=== PATIENT | female | born 1955 | race Caucasian/White ===

== ENCOUNTER → 2016-06-18 | Outpatient (CLI) | payer MEDICAID, BC ==
[2016-06-18 07:42] LABS: Basophils % (A) 1 %; CHCM 35.1; Eosinophils # (A) 0.1 k/uL (0-0.7); Eosinophils % (A) 1 %; HCT 42.8 % (34.0-46.0); HDW 2.74; HGB 14.7 gm/dL (11.4-16.0); Luc # (Auto) 0.25; Luc % (Auto) 4; Lymphocytes # (A) 2.2 k/uL (1.0-4.8); Lymphocytes % (A) 38 %; MCH 31.3 pg (25.0-35.0); MCHC 34.3 g/dL (31.0-37.0); MCV 91.4 fL (80.0-100.0); Mean Platelet Volume 9.3; Monocytes # (A) 0.5 k/uL (0-1.0); Monocytes % (A) 9 %; Neutrophils # (A) 2.8 k/uL (1.3-7.7); Neutrophils % (A) 48 %; RBC 4.68 m/uL (3.80-5.40); RDW 12.9 % (11.5-15.5); WBC 5.8 k/uL (3.8-10.6); WBC (Perox) 5.72
[2016-06-18 07:48] LABS: Calcium 9.8 mg/dL (8.4-10.2); Potassium 3.4 mmol/L (3.5-5.1); Total Bilirubin 1.3 mg/dL (0.2-1.3); Total Protein 7.6 g/dL (6.3-8.2)
== END | disposition home or self-care (01) ==
LOC: LABWHC1 07:01
PROVIDERS: ATTEND Internal Medicine Geriatric Medicine
DX: C64.2 Malignant neoplasm of left kidney, except renal pelvis (principal); E78.5 Hyperlipidemia, unspecified
CPT/HCPCS: 36415; 80053; 80061; 85025

== ENCOUNTER → 2016-07-26 | Outpatient (CLI) | payer MEDICAID, BC ==
--- NOTE | 2016-07-26 08:57 | XR ---
EXAMINATION TYPE: XR chest 2V DATE OF EXAM: 07/26/2016 8:43 AM COMPARISON: Prior chest x-ray 15 March 2016 HISTORY: Renal staging, renal cell carcinoma TECHNIQUE: Frontal and lateral views of the chest are obtained. FINDINGS: There is no focal air space opacity, pleural effusion, or pneumothorax seen. The cardiac silhouette size is within normal limits. The osseous structures are intact. IMPRESSION: No acute cardiopulmonary process.
--- NOTE | 2016-07-26 15:33 | CT ---
EXAMINATION TYPE: CT abdomen wo con DATE OF EXAM: 07/26/2016 8:43 AM COMPARISON: 07/03/2015 INDICATION: Follow up to Lt Radical nephrectomy, hypertension DLP: 152.7 mGycm, Automated exposure control for dose reduction was used. CONTRAST: 0 mL of Omnipaque 300. Study performed with Oral Contrast TECHNIQUE: Axial images were obtained from above the diaphragm to the pubic rami in the axial plane a t 5 mm thick sections. Reconstructed images are reviewed on the computer in the coronal plane. FINDINGS: Limited CT sections are obtained the lung bases. The lung bases are clear. CT ABDOMEN: Liver: Normal Spleen: Normal Pancreas: Normal Adrenal glands: The adrenal glands are normal. Gallbladder: Normal Kidneys: Left kidney is absent. No recurrent masses within the left renal bed are evident. Right kidney: No masses are evident. No hydronephrosis is present. No cysts are present. No renal stones are identified. Adenopathy: No suspicious adenopathy within the renal artery level is evident. No suspicious retrocav al adenopathy is evident. Aorta: Normal Inferior vena cava: Normal. No suspicious lytic lesions are evident. Some lower lumbar spine facet hypertrophy is present. Fecal debris is within the colon. Small bowel loops distended with oral contrast are unremarkable. IMPRESSIONS: 1. No suspicious changes for recurrent renal cancer
== END ==
LOC: RADCTMAIN 08:28
PROVIDERS: ATTEND Urology
DX: C64.9 Malignant neoplasm of unspecified kidney, except renal pelvis (principal)
CPT/HCPCS: 71020; 74150

== ENCOUNTER → 2016-09-04 | Outpatient (CLI) | payer MEDICAID, BC ==
[2016-09-04 14:40] LABS: CH 31.8; CHCM 33.5; HCT 39.3 % (34.0-46.0); MCH 31.6 pg (25.0-35.0); MCHC 33.2 g/dL (31.0-37.0); MCV 95.3 fL (80.0-100.0); Mean Platelet Volume 9.4; RBC 4.12 m/uL (3.80-5.40); RDW 13.2 % (11.5-15.5); WBC 6.2 k/uL (3.8-10.6)
[2016-09-04 14:50] LABS: Calcium 9.4 mg/dL (8.4-10.2); Phosphorous 3.9 mg/dL (2.5-4.5); Potassium 4.4 mmol/L (3.5-5.1); Total Bilirubin 0.9 mg/dL (0.2-1.3); Total Protein 6.5 g/dL (6.3-8.2)
[2016-09-04 15:04] LABS: Appearance,Urine Clear (Clear); Bilirubin,Urine Negative (Negative); Glucose,Urine (UA) Negative (Negative); Ketones,Urine Trace (Negative); Leukocyte Esterase,Urine Negative (Negative); Nitrite,Urine Negative (Negative); Protein,Urine Negative (Negative); Specific Gravity,Urine 1.014 (1.001-1.035); UA Billing (MACRO vs. MICRO) CHEM; Urobilinogen,Urine <2.0 mg/dL (<2.0)
== END | disposition home or self-care (01) ==
LOC: LABWHC1 13:48
PROVIDERS: ATTEND Internal Medicine Nephrology
DX: N39.0 Urinary tract infection, site not specified (principal); D64.9 Anemia, unspecified; E83.39 Other disorders of phosphorus metabolism
CPT/HCPCS: 36415; 80053; 81003; 84100; 85027

== ENCOUNTER → 2016-09-16 | Outpatient (CLI) | payer MEDICAID, BC ==
[2016-09-16 17:09] LABS: Basophils % (A) 0 %; CH 32.4; CHCM 35.9; Eosinophils # (A) 0.2 k/uL (0-0.7); Eosinophils % (A) 3 %; HCT 38.4 % (34.0-46.0); HDW 2.81; HGB 13.6 gm/dL (11.4-16.0); Luc # (Auto) 0.28; Luc % (Auto) 4; Lymphocytes # (A) 2.7 k/uL (1.0-4.8); Lymphocytes % (A) 42 %; MCH 32.3 pg (25.0-35.0); MCHC 35.5 g/dL (31.0-37.0); MCV 90.9 fL (80.0-100.0); Mean Platelet Volume 9.1; Monocytes # (A) 0.5 k/uL (0-1.0); Monocytes % (A) 8 %; Neutrophils # (A) 2.8 k/uL (1.3-7.7); Neutrophils % (A) 43 %; RBC 4.23 m/uL (3.80-5.40); RDW 12.6 % (11.5-15.5); WBC 6.5 k/uL (3.8-10.6); WBC (Perox) 6.95
[2016-09-16 17:12] LABS: Appearance,Urine Clear (Clear); Bilirubin,Urine Negative (Negative); Glucose,Urine (UA) Negative (Negative); Ketones,Urine Negative (Negative); Leukocyte Esterase,Urine Negative (Negative); Nitrite,Urine Negative (Negative); PH, Urine 6.5 (5.0-8.0); Protein,Urine Negative (Negative); Specific Gravity,Urine 1.019 (1.001-1.035); UA Billing (MACRO vs. MICRO) CHEM; Urobilinogen,Urine <2.0 mg/dL (<2.0)
[2016-09-16 17:27] LABS: Calcium 9.9 mg/dL (8.4-10.2); Magnesium 2.2 mg/dL (1.6-2.3); Phosphorous 4.1 mg/dL (2.5-4.5); Potassium 3.5 mmol/L (3.5-5.1); Uric Acid 6.8 mg/dL (3.7-7.4)
[2016-09-16 17:35] LABS: % Iron Saturation 20.4 % (20-50)
[2016-09-16 17:39] LABS: Creatinine,Urine Random 124.4 mg/dL
== END ==
LOC: LABWHC1 16:34
PROVIDERS: ATTEND Internal Medicine Nephrology
DX: N18.3 Chronic kidney disease, stage 3 (moderate) (principal); D64.9 Anemia, unspecified; E55.9 Vitamin D deficiency, unspecified; E21.3 Hyperparathyroidism, unspecified; M10.9 Gout, unspecified; N39.0 Urinary tract infection, site not specified; R80.9 Proteinuria, unspecified
CPT/HCPCS: 36415; 80048; 81003; 82306; 82570; 82728; 83540; 83550; 83735; 83970; 84100; 84156; 84443; 84550; 85025

== ENCOUNTER → 2016-10-11 | Outpatient (CLI) | payer MEDICAID, BC ==
[2016-10-11 07:56] LABS: Appearance,Urine Clear (Clear); Bilirubin,Urine Negative (Negative); Glucose,Urine (UA) Negative (Negative); Ketones,Urine Negative (Negative); Leukocyte Esterase,Urine Trace (Negative); Nitrite,Urine Negative (Negative); Particle Count 2300; Protein,Urine Negative (Negative); Specific Gravity,Urine 1.016 (1.001-1.035); Squamous Epithelial Cell,Urine 1 /hpf (0-4); UA Billing (MACRO vs. MICRO) MICRO; Urobilinogen,Urine <2.0 mg/dL (<2.0); WBC,Urine 1 /hpf (0-5)
[2016-10-11 08:14] LABS: Calcium 9.4 mg/dL (8.4-10.2); Magnesium 2.1 mg/dL (1.6-2.3); Potassium 3.7 mmol/L (3.5-5.1); Total Bilirubin 1.1 mg/dL (0.2-1.3); Total Protein 7.1 g/dL (6.3-8.2)
== END | disposition home or self-care (01) ==
LOC: LABWHC1 07:37
PROVIDERS: ATTEND Internal Medicine Nephrology
DX: E78.5 Hyperlipidemia, unspecified (principal); N39.0 Urinary tract infection, site not specified; N18.3 Chronic kidney disease, stage 3 (moderate)
CPT/HCPCS: 36415; 80053; 80061; 81001; 82550; 83735

== ENCOUNTER → 2017-01-08 | Outpatient (CLI) | payer MEDICAID, BC ==
[2017-01-08 08:03] LABS: Appearance,Urine Clear (Clear); Bilirubin,Urine Negative (Negative); Glucose,Urine (UA) Negative (Negative); Ketones,Urine Negative (Negative); Leukocyte Esterase,Urine Trace (Negative); Nitrite,Urine Negative (Negative); Particle Count 1145; Protein,Urine Trace (Negative); RBC,Urine 1 /hpf (0-5); Specific Gravity,Urine 1.018 (1.001-1.035); Squamous Epithelial Cell,Urine <1 /hpf (0-4); UA Billing (MACRO vs. MICRO) MICRO; Urobilinogen,Urine <2.0 mg/dL (<2.0); WBC,Urine 1 /hpf (0-5)
[2017-01-08 08:08] LABS: Calcium 9.4 mg/dL (8.4-10.2); Magnesium 2.1 mg/dL (1.6-2.3); Phosphorus 3.7 mg/dL (2.5-4.5); Potassium 4.2 mmol/L (3.5-5.1); Uric Acid 6.8 mg/dL (3.7-7.4)
[2017-01-08 08:39] LABS: Basophils % (A) 1 %; CH 32.4; Eosinophils # (A) 0.1 k/uL (0-0.7); Eosinophils % (A) 2 %; HCT 40.7 % (34.0-46.0); HDW 2.43; HGB 13.2 gm/dL (11.4-16.0); Luc # (Auto) 0.09; Luc % (Auto) 2; Lymphocytes # (A) 1.8 k/uL (1.0-4.8); Lymphocytes % (A) 37 %; MCH 31.1 pg (25.0-35.0); MCHC 32.5 g/dL (31.0-37.0); MCV 95.6 fL (80.0-100.0); Mean Platelet Volume 9.6; Monocytes # (A) 0.4 k/uL (0-1.0); Monocytes % (A) 8 %; Neutrophils # (A) 2.5 k/uL (1.3-7.7); Neutrophils % (A) 51 %; RBC 4.25 m/uL (3.80-5.40); RDW 13.6 % (11.5-15.5); WBC (Perox) 4.76
[2017-01-08 11:27] LABS: Iron Saturation 24.41 (12.00-45.00)
== END | disposition home or self-care (01) ==
LOC: LABWHC1 07:18
PROVIDERS: ATTEND Internal Medicine Nephrology
DX: N18.3 Chronic kidney disease, stage 3 (moderate) (principal); D64.9 Anemia, unspecified; E55.9 Vitamin D deficiency, unspecified; E21.3 Hyperparathyroidism, unspecified; M10.9 Gout, unspecified; N39.0 Urinary tract infection, site not specified
CPT/HCPCS: 36415; 80048; 81001; 82306; 82728; 83540; 83550; 83735; 83970; 84100; 84550; 85025

== ENCOUNTER → 2017-02-11 | Outpatient (CLI) | payer MEDICAID, BC ==
--- NOTE | 2017-02-12 09:57 | XR ---
EXAMINATION TYPE: XR chest 2V DATE OF EXAM: 02/11/2017 COMPARISON: 07/26/2016 HISTORY: Shortness of breath TECHNIQUE: Frontal and lateral views of the chest are obtained. FINDINGS: Scattered senescent parenchymal changes noted. Hyperinflation compatible with COPD. No evidence for infiltrate. No evidence for atelectasis. Heart size is stable. Mediastinal structures are stable and grossly unremarkable. No evidence for hilar prominence. Degenerative changes dorsal spine. IMPRESSION: 1. No evidence for acute pulmonary disease.
== END | disposition home or self-care (01) ==
LOC: RADXRMAIN 16:13
PROVIDERS: ATTEND Urology
DX: D49.519 Neoplasm of unspecified behavior of unspecified kidney (principal)
CPT/HCPCS: 71020

== ENCOUNTER 2017-05-09 08:29 | Emergency (ER) | payer MEDICAID, BC ==
[2017-05-09] MEDS ORDERED: ACETAMINOPHEN TAB 325 MG TAB PO STA (09:04)
--- NOTE | 2017-05-09 09:16 | ED ---
General Adult HPI - General Chief complaint: Fever Stated complaint: FLU SYMPTOMS Time Seen by Provider: 05/09/17 08:49 Source: patient, RN notes reviewed Mode of arrival: ambulatory - History of Present Illness Initial comments: Patient is a 63-year-old female who presents emergency room today with a chief complaint cough congestion, body aches chills and a fever over the last 4 days. Patient does admit that symptoms are 4 days ago she thought she would start feeling better but is not. She states that she believes she has the flu. She denies any nausea, vomiting, diarrhea. Admits to bodyaches to take Tylenol prior to arrival only 2 tabs 325 mg Tylenol. Patient states she cannot take ibuprofen. Patient denies any other complaints or symptoms. Patient denies any recent shortness of breath, chest pain, back pain, abdominal pain, nausea or vomiting, numbness or tingling, dysuria or hematuria, constipation or diarrhea, headaches or visual changes, or any other complaints. - Related Data Home Medications Medication Instructions Recorded Confirmed Aspirin 81 mg PO DIRECTED 03/09/14 05/09/17 Hydrochlorothiazide [Hydrodiuril] 12.5 mg PO DIRECTED 03/09/14 05/09/17 Atorvastatin [Lipitor] 10 mg PO DIRECTED 05/09/17 05/09/17 Carvedilol [Coreg] 6.25 mg PO BID 05/09/17 05/09/17 Cholecalciferol [Vitamin D3] 1,000 unit PO DAILY 05/09/17 05/09/17 Multivitamins, Thera [Multivitamin 1 tab PO DAILY 05/09/17 05/09/17 (formulary)] Previous Rx's Medication Instructions Recorded Oseltamivir [Tamiflu] 75 mg PO Q12HR 5 Days cap 05/09/17 Allergies Allergy/AdvReac Type Severity Reaction Status Date / Time No Known Allergies Allergy Verified 05/09/17 09:21 Review of Systems ROS Statement: Those systems with pertinent positive or pertinent negative responses have been documented in the HPI. ROS Other: All systems not noted in ROS Statement are negative. Past Medical History Past Medical History: Hypertension History of Any Multi-Drug Resistant Organisms: None Reported Additional Past Surgical History / Comment(s): Nephrectomy Past Psychological History: No Psychological Hx Reported Smoking Status: Never smoker Past Alcohol Use History: Occasional Past Drug Use History: None Reported General Exam - General Exam Comments Initial Comments: General: The patient is awake and alert, in no distress, and does not appear acutely ill. Eye: Pupils are equal, round and reactive to light, extra-ocular movements are intact. No nystagmus. There is normal conjunctiva bilaterally. No signs of icterus. Ears, nose, mouth and throat: There are moist mucous membranes and no oral lesions. Neck: The neck is supple, there is no tenderness or JVD. Cardiovascular: There is a regular rate and rhythm. No murmur, rub or gallop is appreciated. Respiratory: Lungs are clear to auscultation, respirations are non-labored, breath sounds are equal. No wheezes, stridor, rales, or rhonchi. Musculoskeletal: Normal ROM, no tenderness. Strength 5/5. Sensation intact. Pulses equal bilaterally 2+. Neurological: A&O x 3. CN II-XII intact, There are no obvious motor or sensory deficits. Coordination appears grossly intact. Speech is normal. Skin: Skin is warm and dry and no rashes or lesions are noted. Psychiatric: Cooperative, appropriate mood & affect, normal judgment. Course Vital Signs 05/09/17 08:40 Temperature 101.8 F H Pulse Rate 112 H Respiratory 22 Rate Blood Pressure 147/79 O2 Sat by Pulse 98 Oximetry Medical Decision Making - Medical Decision Making Patient's symptoms are consistent with influenza here the emergency room. Patient will be started on Tamiflu as she states that she believes that will help her symptoms. Patient was not swab for influenza as there is a shortage of the swab kits. Patient's chest x-rays negative. Will be discharged home. Advised to continue Tylenol return here to the emergency symptoms increase or worsen. Disposition Clinical Impression: Influenza Disposition: HOME SELF-CARE Condition: Good Instructions: Influenza (ED) Additional Instructions: Please use medication as discussed. Please follow-up with family doctor in the next 2 days of symptoms have not improved. Please return to emergency room if the symptoms increase or worsen or for any other concerns. Prescriptions: Oseltamivir [Tamiflu] 75 mg PO Q12HR 5 Days cap Referrals: Boni Calderon MD [Primary Care Provider] - 1-2 days Time of Disposition: 10:09
--- NOTE | 2017-05-09 09:29 | XR ---
EXAMINATION TYPE: XR chest 2V DATE OF EXAM: 05/09/2017 COMPARISON: Prior chest x-ray 02/11/2017 HISTORY: Cough and congestion TECHNIQUE: Frontal and lateral views of the chest are obtained. FINDINGS: There is no focal air space opacity, pleural effusion, or pneumothorax seen. The cardiac silhouette size is within normal limits. The osseous structures are intact. There is bronchial wall thickening. IMPRESSION: Findings compatible with bronchitis or reactive airways disease.
[2017-05-09 10:23] VITALS: BP 137/75; PULSE 78; RESP 18; TEMP 101.7
== END 2017-05-09 10:22 | disposition home or self-care (01) ==
LOC: EC 08:29
DX: J11.1 Influenza due to unidentified influenza virus with other respiratory manifestations (principal); I10 Essential (primary) hypertension; Z79.82 Long term (current) use of aspirin; Z79.899 Other long term (current) drug therapy
CPT/HCPCS: 71046; 99283

== ENCOUNTER → 2017-05-22 | Outpatient (CLI) | payer MEDICAID, BC ==
--- NOTE | 2017-05-26 09:57 | MM ---
Reason for exam: screening (asymptomatic). Last mammogram was performed 1 year and 2 months ago. History: Patient is postmenopausal and has history of other cancer at age 61. Benign cyst aspiration of the left breast, November 07, 1997. Excisional biopsy of the left breast. Took estrogen for 3 years 1 month. Physical Findings: A clinical breast exam by your physician is recommended on an annual basis and results should be correlated with mammographic findings. MG 3D Screening Mammo W/Cad Bilateral CC and MLO view(s) were taken. Prior study comparison: April 03, 2016, bilateral MG 3d screening mammo w/cad. February 20, 2015, bilateral MG 3d screening mammo w/cad. Finding: There is a typically benign equal density (isodense), obscured oval mass in the anterior position of the right breast on CC view, likely summation. New finding since April 03, 2016 and February 20, 2015. ASSESSMENT: Probably benign, BI-RAD 3 RECOMMENDATION: Follow-up diagnostic mammogram of the right breast in 6 months.
== END ==
LOC: RADMAMWWP 07:08
PROVIDERS: ATTEND Internal Medicine Geriatric Medicine
DX: Z12.31 Encounter for screening mammogram for malignant neoplasm of breast (principal)
CPT/HCPCS: 77063; 77067

== ENCOUNTER → 2017-06-30 | Outpatient (CLI) | payer MEDICAID, BC ==
[2017-06-30 07:53] LABS: Basophils % (A) 0 %; Eosinophils # (A) 0.1 k/uL (0-0.7); Eosinophils % (A) 2 %; HCT 39.9 % (34.0-46.0); HGB 13.2 gm/dL (11.4-16.0); Lymphocytes % (A) 39 %; MCHC 33.1 g/dL (31.0-37.0); MCV 90.5 fL (80.0-100.0); Mean Platelet Volume 8.8; Monocytes # (A) 0.4 k/uL (0-1.0); Monocytes % (A) 9 %; Neutrophils # (A) 2.4 k/uL (1.3-7.7); Neutrophils % (A) 48 %; Platelet Count 146 k/uL (150-450); RBC 4.41 m/uL (3.80-5.40); RDW 13.3 % (11.5-15.5)
[2017-06-30 08:13] LABS: Albumin 4.2 g/dL (3.5-5.0); Calcium 9.8 mg/dL (8.4-10.2); Total Bilirubin 1.2 mg/dL (0.2-1.3); Total Protein 6.8 g/dL (6.3-8.2); Uric Acid 5.9 mg/dL (3.7-7.4)
== END | disposition home or self-care (01) ==
LOC: LABWHC1 07:11
PROVIDERS: ATTEND Internal Medicine Geriatric Medicine
DX: E78.5 Hyperlipidemia, unspecified (principal); N18.9 Chronic kidney disease, unspecified
CPT/HCPCS: 36415; 80053; 80061; 84550; 85025

== ENCOUNTER → 2017-08-01 | Outpatient (CLI) | payer MEDICAID, BC ==
--- NOTE | 2017-08-01 15:22 | XR ---
EXAMINATION TYPE: XR chest 2V DATE OF EXAM: 08/01/2017 COMPARISON: 05/09/2017 TECHNIQUE: PA and lateral views submitted. HISTORY: Abnormal x-ray follow-up FINDINGS: The lungs are clear and there is no pneumothorax, pleural effusion, or focal pneumonia. Mild promin ence of interstitium appears chronic. Hypertrophic and degenerative change of the spine. IMPRESSION: 1. No acute process.
--- NOTE | 2017-08-01 16:01 | CT ---
EXAMINATION TYPE: CT abdomen wo con DATE OF EXAM: 08/01/2017 COMPARISON: 07/26/2016 HISTORY: Follow up for renal cancer. CT DLP: 362.9 mGycm Examination of the solid and hollow viscera is limited given the lack of contrast. FINDINGS: LUNG BASES: No evidence for nodule. No evidence for infiltrate. LIVER/GB: The gallbladder is unremarkable. No space-occupying hepatic lesion. PANCREAS: No pancreatic mass identified. No inflammatory process seen. SPLEEN: No evidence for splenomegaly. No intrasplenic lesions seen. ADRENALS: No adrenal nodules identified. No evidence for thickening. KIDNEYS: Left-sided nephrectomy change without evidence for recurrent or residual mass. No evidence f or renal mass. No nephrolithiasis. No hydronephrosis. BOWEL: Appendix has a normal appearance. No evidence of bowel obstruction. No inflammatory process. Lymph nodes: No evidence for adenopathy greater than 1 cm. Abdominal aorta: Atheromatous changes seen. No evidence for aneurysm. Other: No significant abnormality. IMPRESSION: 1. No evidence for recurrent renal cancer.
== END | disposition home or self-care (01) ==
LOC: RADCTMAIN 15:00
PROVIDERS: ATTEND Urology
DX: Z08 Encounter for follow-up examination after completed treatment for malignant neoplasm (principal); Z85.528 Personal history of other malignant neoplasm of kidney
CPT/HCPCS: 71046; 74150

== ENCOUNTER → 2017-08-29 | Outpatient (CLI) | payer MEDICAID, BC ==
--- NOTE | 2017-08-29 14:00 | ECHOS ---
STRESS ECHOCARDIOGRAM DATE OF SERVICE: 08/29/2017 INDICATIONS: Chest discomfort. MEDICATIONS: Coreg, HCTZ, statin, aspirin, vitamin D. BASELINE HEART RATE: 71 BASELINE BLOOD PRESSURE: 126/94 MAXIMUM HEART RATE: 149 MAXIMUM BLOOD PRESSURE: 166/123 85% MPHR: 134 100% MPHR: 158 METS: 12.1 MAXIMUM STAGE REACHED: III TOTAL EXERCISE TIME: 11:30 CLINICAL INFORMATION: STRESS DATA: Pretesting physical examination showed a heart rate of 71, pressure is 126/94 mmHg. Baseline EKG showed sinus mechanism. The patient exercised on the treadmill according to Eder protocol for a total of 11 minutes and 30 seconds and achieved 12.1 METS. Max heart rate was 149 which is about 94% of maximum predicted heart rate. Maximum blood pressure was 166/123 mmHg. Clinically, the patient did not have any symptoms of chest pain or discomfort during the testing or in the recovery. The EKG did not reveal any significant ST or T-wave abnormalities concerning for ischemia. ECHOCARDIOGRAM IMAGES: On echocardiogram images from parasternal long axis, parasternal short axis view. apical 4 chambers and apical 2 chamber views were obtained as the baseline images, at the peak of the heart rate as well as on recovery. On the echocardiogram images from parasternal long axis view, parasternal short axis view, apical 4 chamber and apical 2 chamber view were obtained as the baseline images, at the peak of the heart rate as well as on recovery. The echocardiogram images on the parasternal long axis showed questionable septum thickening in response to exercise. CONCLUSION: 1. Good exercise tolerance. 2. Normal EKG in response to exercise. 3. Abnormal echocardiogram in response to exercise with septal hypokinesia concerning for severe underlying coronary artery disease. MMODL / IJN: [id number] /
--- NOTE | 2017-08-30 09:19 | EST ---
EXERCISE STRESS DATE OF SERVICE: August 29, 2017. REFERRING PHYSICIAN: Dr. Calderon. AGE: 62 SEX: Fe HT: 5'4" WT: 150 lbs PROTOCOL: Eder. STAGE: III DURATION OF EXERCISE: 11:30 minutes HEART RATE REST: 71 BLOOD PRESSURE REST: 126/94 MAXIMUM HEART RATE ACHIEVED: 149 MAXIMUM BLOOD PRESSURE: 166/23 85% MPHR: 134 100% MPHR: 158 METS: 12.1 INDICATIONS: Physical examination. STRESS DATA: Pretesting physical examination showed a heart rate of 71, pressure is 126/94 mmHg. Baseline EKG showed sinus mechanism. The patient exercised on the treadmill according to Eder protocol for a total of 11 minutes and achieved 12.1 METS. Max heart rate was 149 which is about 94% of maximum predicted heart rate. Maximum blood pressure was 166/23 mmHg. Clinically the patient did not have any symptoms of chest pain or discomfort during the testing or in the recovery. The EKG did not show any ischemic ST or T-wave abnormalities concerning for ischemia. ECHOCARDIOGRAM IMAGES: On echocardiogram images from parasternal long axis view, parasternal short axis view, complete apical 4 chambers and apical 2 chamber view were obtained as the baseline images, at the peak of the heart rate, as well as on recovery. The echocardiogram images showed good augmentation in the left ventricular systolic function without any evidence of wall motion abnormalities concerning for ischemia. CONCLUSION: 1. Excellent exercise tolerance. 2. Normal EKG in response to exercise. 3. Normal echocardiogram in response to exercise as well. 4. Essentially normal stress echocardiogram. MMODL / IJN: [id number] /
== END | disposition home or self-care (01) ==
LOC: RADNMMAIN 08:15
PROVIDERS: ATTEND Internal Medicine Geriatric Medicine
DX: R94.31 Abnormal electrocardiogram [ECG] [EKG] (principal)
CPT/HCPCS: 93351

== ENCOUNTER → 2017-11-20 | Outpatient (CLI) | payer MEDICAID, BC ==
--- NOTE | 2017-11-20 13:26 | MM ---
Reason for exam: follow-up at short interval from prior study. Last mammogram was performed 6 months ago. History: Patient is postmenopausal and has history of other cancer at age 61. Benign cyst aspiration of the left breast, November 07, 1997. Excisional biopsy of the left breast. Took estrogen for 3 years 1 month. Physical Findings: Nurse did not find any significant physical abnormalities on exam. MG 3D Diag Mammo W/Cad RT CC, MLO, spot compression CC, spot compression MLO, and LM view(s) were taken of the right breast. Prior study comparison: May 22, 2017, bilateral MG 3d screening mammo w/cad. April 03, 2016, bilateral MG 3d screening mammo w/cad. February 20, 2015, bilateral MG 3d screening mammo w/cad. The breast tissue is heterogeneously dense. This may lower the sensitivity of mammography. There are benign appearing right calcifications. The central, slightly medial right anterior middle depth focal asymmetry is stable from 2014 and appears as fibroglandular tissue on the additional views. These results were verbally communicated with the patient and result sheet given to the patient on 11/20/17. ASSESSMENT: Benign, BI-RAD 2 RECOMMENDATION: Return to routine screening mammogram schedule for both breasts.
== END | disposition home or self-care (01) ==
LOC: RADMAMWWP 06:56
PROVIDERS: ATTEND Obstetrics & Gynecology
DX: R92.8 Other abnormal and inconclusive findings on diagnostic imaging of breast (principal)
CPT/HCPCS: 77061; 77065

== ENCOUNTER → 2018-01-16 | Outpatient (CLI) | payer MEDICAID, BC ==
[2018-01-16 07:52] LABS: Basophils % (A) 0 %; Eosinophils # (A) 0.1 k/uL (0-0.7); Eosinophils % (A) 2 %; HCT 41.4 % (34.0-46.0); HGB 13.9 gm/dL (11.4-16.0); Lymphocytes % (A) 39 %; MCH 30.8 pg (25.0-35.0); MCHC 33.6 g/dL (31.0-37.0); MCV 91.7 fL (80.0-100.0); Mean Platelet Volume 8.9; Monocytes # (A) 0.4 k/uL (0-1.0); Monocytes % (A) 8 %; Neutrophils # (A) 2.5 k/uL (1.3-7.7); Neutrophils % (A) 48 %; Platelet Count 145 k/uL (150-450); RBC 4.52 m/uL (3.80-5.40); RDW 12.8 % (11.5-15.5); WBC 5.1 k/uL (3.8-10.6)
[2018-01-16 07:59] LABS: Appearance,Urine Clear (Clear); Bilirubin,Urine Negative (Negative); Blood,Urine Negative (Negative); Color,Urine Yellow; Glucose,Urine (UA) Negative (Negative); Ketones,Urine Negative (Negative); Leukocyte Esterase,Urine Small (Negative); Mucus,Urine Rare /hpf; Nitrite,Urine Negative (Negative); Protein,Urine Negative (Negative); Specific Gravity,Urine 1.022 (1.001-1.035); Squamous Epithelial Cell,Urine <1 /hpf (0-4); Urobilinogen,Urine <2.0 mg/dL (<2.0); WBC,Urine 3 /hpf (0-5)
[2018-01-16 08:05] LABS: Albumin 4.4 g/dL (3.5-5.0); Calcium 9.5 mg/dL (8.4-10.2); Potassium 3.9 mmol/L (3.5-5.1); Uric Acid 6.7 mg/dL (3.7-7.4)
[2018-01-16 11:11] LABS: Iron Saturation 20.31 (12.00-45.00)
[2018-01-16 11:21] LABS: Parathyroid Hormone Intact 80.3 pg/mL (14.0-72.0); Vitamin D 25 Hydroxy 44.8 ng/mL (30.0-100.0)
== END ==
LOC: LABWHC1 07:25
PROVIDERS: ATTEND Internal Medicine Nephrology
DX: N18.3 Chronic kidney disease, stage 3 (moderate) (principal); D63.1 Anemia in chronic kidney disease; E55.9 Vitamin D deficiency, unspecified; E21.3 Hyperparathyroidism, unspecified; M10.9 Gout, unspecified; N39.0 Urinary tract infection, site not specified
CPT/HCPCS: 36415; 80048; 81001; 82040; 82306; 82728; 83540; 83550; 83735; 83970; 84100; 84550; 85025

== ENCOUNTER → 2018-02-09 | Outpatient (CLI) | payer MEDICAID, BC ==
[2018-02-09 20:33] LABS: LDL Cholesterol,Calculated 97.2 mg/dL (0.0-131.0); VLDL Calculation 50.8 mg/dL (5.00-40.00)
[2018-02-09 20:44] LABS: T4, Free (Free Thyroxine) 1.2 ng/dL (0.80-1.80)
== END ==
LOC: LABWHC1 11:54
PROVIDERS: ATTEND Nurse Practitioner Family
DX: E21.5 Disorder of parathyroid gland, unspecified (principal); E78.5 Hyperlipidemia, unspecified
CPT/HCPCS: 36415; 80061; 84439; 84443

== ENCOUNTER → 2018-02-11 | Outpatient (CLI) | payer MEDICAID, BC ==
--- NOTE | 2018-02-11 16:01 | US ---
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 GLAND SIZE: Right Lobe: 4.9 x 1.3 x 1.9 cm Overall Parenchyma: heterogenous Left Lobe: 5.1 x 1.2 x 1.3 cm Overall Parenchyma: heterogeneous Isthmus Thickness: 0.2 cm NODULES RIGHT: # of nodules measured on right: 0 LEFT: # of nodules measured on left: 0 ISTHMUS: # of nodules measured in the isthmus: 0 Bilateral neck scanned, 1.8 x 0.4 x 0.6cm hypoechoic structure seen right neck inferior/lateral to th yroid. IMPRESSION: 1. Thyroid gland enlargement. 2. Hypoechoic structure noted inferior and lateral to the thyroid gland on the right. Consider CT cor relation.
== END | disposition home or self-care (01) ==
LOC: RADUSWWP 15:28
PROVIDERS: ATTEND Internal Medicine Geriatric Medicine
DX: E04.9 Nontoxic goiter, unspecified (principal)
CPT/HCPCS: 76536

== ENCOUNTER → 2018-05-26 | Outpatient (CLI) | payer MEDICAID, BC ==
[2018-05-26 07:40] LABS: Basophils % (A) 0 %; Eosinophils # (A) 0.2 k/uL (0-0.7); Eosinophils % (A) 5 %; HCT 42.7 % (34.0-46.0); Lymphocytes # (A) 1.9 k/uL (1.0-4.8); Lymphocytes % (A) 37 %; MCHC 32.8 g/dL (31.0-37.0); MCV 94.4 fL (80.0-100.0); Mean Platelet Volume 8.2; Monocytes # (A) 0.4 k/uL (0-1.0); Monocytes % (A) 7 %; Neutrophils # (A) 2.5 k/uL (1.3-7.7); Neutrophils % (A) 48 %; Platelet Count 137 k/uL (150-450); RBC 4.52 m/uL (3.80-5.40); WBC 5.2 k/uL (3.8-10.6)
[2018-05-26 08:10] LABS: Albumin 4.4 g/dL (3.5-5.0); Calcium 9.8 mg/dL (8.4-10.2); Potassium 4.2 mmol/L (3.5-5.1); Total Bilirubin 1.2 mg/dL (0.2-1.3)
[2018-05-26 08:26] LABS: T4, Free (Free Thyroxine) 1.22 ng/dL (0.78-2.19)
[2018-05-26 12:01] LABS: Parathyroid Hormone Intact 48.1 pg/mL (14.0-72.0)
--- NOTE | 2018-05-27 08:34 | MM ---
Reason for exam: screening (asymptomatic). Last mammogram was performed 6 months ago. History: Patient is postmenopausal and has history of other cancer at age 61. Benign cyst aspiration of the left breast, November 07, 1997. Excisional biopsy of the left breast. Took estrogen for 3 years 1 month. Physical Findings: A clinical breast exam by your physician is recommended on an annual basis and results should be correlated with mammographic findings. MG 3D Screening Mammo W/Cad Bilateral CC and MLO view(s) were taken. Prior study comparison: November 20, 2017, right breast MG 3d diag mammo w/cad RT. May 22, 2017, bilateral MG 3d screening mammo w/cad. The breast tissue is heterogeneously dense. This may lower the sensitivity of mammography. Benign appearing bilateral calcifications. No suspicious abnormality. Post surgical change on the left. No significant changes when compared with prior studies. ASSESSMENT: Benign, BI-RAD 2 RECOMMENDATION: Routine screening mammogram of both breasts in 1 year.
== END | disposition home or self-care (01) ==
LOC: RADMAMWWP 06:57
PROVIDERS: ATTEND Internal Medicine Geriatric Medicine
DX: Z12.31 Encounter for screening mammogram for malignant neoplasm of breast (principal); E55.9 Vitamin D deficiency, unspecified; N18.3 Chronic kidney disease, stage 3 (moderate); E21.5 Disorder of parathyroid gland, unspecified; E78.5 Hyperlipidemia, unspecified
CPT/HCPCS: 77063; 77067; 80053; 80061; 82306; 83970; 84439; 84443; 85025

== ENCOUNTER → 2018-07-24 | Outpatient (CLI) | payer MEDICAID, BC ==
--- NOTE | 2018-07-24 11:08 | XR ---
EXAMINATION TYPE: XR chest 2V DATE OF EXAM: 07/24/2018 COMPARISON: 08/01/2017 TECHNIQUE: PA and lateral views submitted. HISTORY: Follow up renal cancer FINDINGS: The lungs are clear and there is no pneumothorax, pleural effusion, or focal pneumonia. IMPRESSION: 1. No acute process.
== END | disposition home or self-care (01) ==
LOC: RADXRMAIN 10:38
PROVIDERS: ATTEND Urology
DX: D49.519 Neoplasm of unspecified behavior of unspecified kidney (principal); M10.9 Gout, unspecified; N39.0 Urinary tract infection, site not specified; E55.9 Vitamin D deficiency, unspecified; N18.3 Chronic kidney disease, stage 3 (moderate); D63.1 Anemia in chronic kidney disease; R80.9 Proteinuria, unspecified
CPT/HCPCS: 71046

== ENCOUNTER → 2018-07-24 | Outpatient (CLI) | payer MEDICAID, BC ==
[2018-07-24 11:52] LABS: Basophils % (A) 1 %; Eosinophils # (A) 0.2 k/uL (0-0.7); Eosinophils % (A) 3 %; HCT 41.7 % (34.0-46.0); Lymphocytes % (A) 32 %; MCH 31.1 pg (25.0-35.0); MCHC 33.5 g/dL (31.0-37.0); MCV 92.8 fL (80.0-100.0); Mean Platelet Volume 9.1; Monocytes # (A) 0.5 k/uL (0-1.0); Monocytes % (A) 7 %; Neutrophils # (A) 3.5 k/uL (1.3-7.7); Neutrophils % (A) 55 %; Platelet Count 154 k/uL (150-450); RBC 4.49 m/uL (3.80-5.40); RDW 12.8 % (11.5-15.5); WBC 6.4 k/uL (3.8-10.6)
[2018-07-24 11:58] LABS: Appearance,Urine Clear (Clear); Bilirubin,Urine Negative (Negative); Blood,Urine Negative (Negative); Color,Urine Yellow; Glucose,Urine (UA) Negative (Negative); Ketones,Urine Negative (Negative); Leukocyte Esterase,Urine Moderate (Negative); Mucus,Urine Rare /hpf; Nitrite,Urine Negative (Negative); Protein,Urine Negative (Negative); Specific Gravity,Urine 1.018 (1.001-1.035); Squamous Epithelial Cell,Urine 1 /hpf (0-4); Urobilinogen,Urine <2.0 mg/dL (<2.0); WBC,Urine 5 /hpf (0-5)
[2018-07-24 20:15] LABS: Iron Saturation 29.33 (12.00-45.00)
[2018-07-24 20:23] LABS: Vitamin D 25 Hydroxy 48.4 ng/mL (30.0-100.0)
[2018-07-24 20:31] LABS: Albumin 4.7 g/dL (3.80-4.90); Anion Gap 10.7 mmol/L (4.00-12.00); Calcium 9.4 mg/dL (8.7-10.3); Carbon Dioxide 25.3 mmol/L (21.6-31.8); Magnesium 2.1 mg/dL (1.5-2.4); Phosphorus 3.4 mg/dL (2.4-5.1); Uric Acid 7.2 mg/dL (2.9-7.7)
[2018-07-24 20:43] LABS: Creatinine,Urine Random 97.8 mg/dL
[2018-07-24 21:20] LABS: Parathyroid Hormone Intact 62.7 pg/mL (14.0-72.0)
== END ==
LOC: LABWHC1 11:23
PROVIDERS: ATTEND Internal Medicine Nephrology
DX: N18.3 Chronic kidney disease, stage 3 (moderate) (principal); E55.9 Vitamin D deficiency, unspecified; M10.9 Gout, unspecified; N39.0 Urinary tract infection, site not specified; D63.1 Anemia in chronic kidney disease; R80.9 Proteinuria, unspecified
CPT/HCPCS: 36415; 80048; 81001; 82040; 82306; 82570; 82728; 83540; 83550; 83735; 83970; 84100; 84156; 84550; 85025

== ENCOUNTER → 2018-08-11 | Outpatient (CLI) | payer MEDICAID, BC ==
--- NOTE | 2018-08-11 16:06 | CT ---
EXAMINATION TYPE: CT abdomen pelvis wo con DATE OF EXAM: 08/11/2018 COMPARISON: 08/01/2017 HISTORY: 63 year-old female chronic kidney disease, stage III, complaining of left side pain under ri bcage. CT DLP: 730 mGycm. Automated exposure control for dose reduction was used. TECHNIQUE: Contiguous axial scanning of the abdomen and pelvis without IV contrast. Coronal and sagit sarkis reconstructions performed. FINDINGS: Heart normal size without pericardial effusion. Some strandy atelectasis in the lower lungs without p leural effusion. Noncontrast appearance of the liver, gallbladder, adrenal glands, right kidney, spleen, pancreas show no gross abnormality. Patient is status post left nephrectomy. Minimal 6 mm of nodularity in the nephrectomy bed is less pr onounced as compared to 08/01/2017, likely representing scar tissue. No dilated small bowel, free fluid, or free air. No mesenteric or retroperitoneal lymphadenopathy. Moderate stool burden. Proximal sigmoid diverticulosis without pericolonic inflammatory change. There is annular narrowing along the second portion of the duodenum without any abnormal thickening, likely representing a peristaltic contraction. Bladder incompletely distended. Uterus is absent. Ovaries are visualized. No abnormal fluid collectio n in the pelvis or pelvic adenopathy. Bones mild degenerative changes of the hips. Facet arthropathy lower lumbar spine. Grade 1 anterolist hesis at L4-L5. IMPRESSION: 1. Status post left nephrectomy. Small area of 6 mm nodularity in the left nephrectomy bed is less p ronounced from 08/01/2017, likely representing scar tissue. 2. Proximal sigmoid diverticulosis without evidence for acute diverticulitis. 3. Moderate stool burden.
== END ==
LOC: RADCTMAIN 14:52
PROVIDERS: ATTEND Internal Medicine Nephrology
DX: N18.3 Chronic kidney disease, stage 3 (moderate) (principal); K57.30 Diverticulosis of large intestine without perforation or abscess without bleeding; Z90.5 Acquired absence of kidney
CPT/HCPCS: 74176

== ENCOUNTER → 2018-09-16 | Outpatient (CLI) | payer MEDICAID, BC ==
[2018-09-16 18:55] LABS: African American GFR (CKD) 42.5 (60.0-200.0); Anion Gap 10.3 mmol/L (4.00-12.00); BUN/Creat Ratio 19.33 Ratio (12.00-20.00); Calcium 9.8 mg/dL (8.7-10.3); Carbon Dioxide 25.7 mmol/L (21.6-31.8); Potassium 4.2 mmol/L (3.5-5.5)
== END | disposition home or self-care (01) ==
LOC: LABWHC1 12:46
PROVIDERS: ATTEND Internal Medicine Nephrology
DX: N18.3 Chronic kidney disease, stage 3 (moderate) (principal)
CPT/HCPCS: 36415; 80048

== ENCOUNTER → 2019-01-19 | Outpatient (CLI) | payer MEDICAID, BC ==
[2019-01-19 10:46] LABS: Basophils % (A) 1 %; Eosinophils # (A) 0.1 k/uL (0-0.7); Eosinophils % (A) 3 %; HCT 41.6 % (34.0-46.0); HGB 13.9 gm/dL (11.4-16.0); Lymphocytes # (A) 1.4 k/uL (1.0-4.8); Lymphocytes % (A) 34 %; MCH 31.3 pg (25.0-35.0); MCHC 33.5 g/dL (31.0-37.0); MCV 93.7 fL (80.0-100.0); Mean Platelet Volume 8.7; Monocytes # (A) 0.3 k/uL (0-1.0); Monocytes % (A) 6 %; Neutrophils # (A) 2.2 k/uL (1.3-7.7); Neutrophils % (A) 53 %; Platelet Count 136 k/uL (150-450); RBC 4.44 m/uL (3.80-5.40); RDW 12.8 % (11.5-15.5); WBC 4.1 k/uL (3.8-10.6)
[2019-01-19 11:00] LABS: Appearance,Urine Clear (Clear); Bacteria,Urine Rare /hpf; Bilirubin,Urine Negative (Negative); Blood,Urine Negative (Negative); Color,Urine Yellow; Glucose,Urine (UA) Negative (Negative); Ketones,Urine Negative (Negative); Leukocyte Esterase,Urine Large (Negative); Mucus,Urine Rare /hpf; Nitrite,Urine Negative (Negative); PH, Urine 6.5 (5.0-8.0); Protein,Urine Negative (Negative); RBC,Urine 2 /hpf (0-5); Specific Gravity,Urine 1.016 (1.001-1.035); Squamous Epithelial Cell,Urine <1 /hpf (0-4); Urobilinogen,Urine <2.0 mg/dL (<2.0); WBC,Urine 9 /hpf (0-5)
[2019-01-19 15:51] LABS: Iron Saturation 33.56 (12.00-45.00)
[2019-01-19 15:59] LABS: Vitamin D 25 Hydroxy 58.2 ng/mL (30.0-100.0)
[2019-01-19 16:01] LABS: Ferritin 119.2 ng/mL (10.0-291.0)
[2019-01-19 16:17] LABS: African American GFR (CKD) 42.5 (60.0-200.0); Albumin 4.5 g/dL (3.80-4.90); Albumin/Globulin Ratio 2.37 (1.60-3.17); BUN/Creat Ratio 17.33 Ratio (12.00-20.00); Calcium 9.9 mg/dL (8.7-10.3); Chol/HDL Ratio 3.82; Globulin 1.9 g/dL (1.6-3.3); LDL Cholesterol,Calculated 115.8 mg/dL (0.0-131.0); Phosphorus 3.9 mg/dL (2.4-5.1); Potassium 4.2 mmol/L (3.5-5.5); Total Bilirubin 1.3 mg/dL (0.3-1.2); Total Protein 6.4 g/dL (6.2-8.2); Uric Acid 6.8 mg/dL (2.9-7.7); VLDL Calculation 39.2 mg/dL (5.00-40.00)
[2019-01-19 18:35] LABS: Total Protein,Urine Random 12.4 mg/dL (0.0-13.5)
[2019-01-19 19:02] LABS: Hemoglobin A1C 4.9 % (4.0-6.0)
== END | disposition home or self-care (01) ==
LOC: LABWHC1 09:41
PROVIDERS: ATTEND Internal Medicine Nephrology
DX: N39.0 Urinary tract infection, site not specified (principal); M10.9 Gout, unspecified; D63.1 Anemia in chronic kidney disease; N18.3 Chronic kidney disease, stage 3 (moderate); N25.81 Secondary hyperparathyroidism of renal origin; E55.9 Vitamin D deficiency, unspecified; R80.9 Proteinuria, unspecified
CPT/HCPCS: 36415; 80053; 80061; 81001; 82306; 82570; 82728; 83036; 83540; 83550; 83735; 83970; 84100; 84156; 84550; 85025

== ENCOUNTER → 2019-02-19 | Outpatient (CLI) | payer MEDICAID, BC ==
--- NOTE | 2019-02-19 09:38 | XR ---
EXAMINATION TYPE: XR chest 2V DATE OF EXAM: 02/19/2019 COMPARISON: 07/24/2018 HISTORY: Shortness of breath TECHNIQUE: Frontal and lateral views of the chest are obtained. FINDINGS: Scattered senescent parenchymal changes noted. No evidence for infiltrate. No evidence for atelectasis. Heart size is stable. Mediastinal structures are stable and grossly unremarkable. No evidence for hilar prominence. Degenerative changes dorsal spine. IMPRESSION: 1. No evidence for acute pulmonary disease.
== END | disposition home or self-care (01) ==
LOC: RADXRMAIN 09:18
PROVIDERS: ATTEND Internal Medicine Geriatric Medicine
DX: R05 Cough (principal)
CPT/HCPCS: 71046

== ENCOUNTER → 2019-06-10 | Outpatient (CLI) | payer MEDICAID, BC ==
--- NOTE | 2019-06-11 11:54 | MM ---
Reason for exam: screening (asymptomatic). Last mammogram was performed 1 year ago. History: Patient is postmenopausal and has history of other cancer at age 61. Benign cyst aspiration of the left breast, November 07, 1997. Excisional biopsy of the left breast. Took hormonal contraceptives for 2 years. Took estrogen for 3 years 1 month. Physical Findings: A clinical breast exam by your physician is recommended on an annual basis and results should be correlated with mammographic findings. MG 3D Screening Mammo W/Cad Bilateral CC and MLO view(s) were taken. Prior study comparison: May 26, 2018, bilateral MG 3d screening mammo w/cad. November 20, 2017, right breast MG 3d diag mammo w/cad RT. The breast tissue is heterogeneously dense. This may lower the sensitivity of mammography. Benign appearing calcifications in the right breast. Medial oval 5 x 3mm middle depth asymmetry 5cm from nipple., possible vascuar ectasia. ASSESSMENT: Incomplete: need additional imaging evaluation, BI-RAD 0 RECOMMENDATION: Special view mammogram of the left breast. If lesion persists on supplemental views, image directed ultrasound is recommended. [facility] will attempt to contact patient to return for supplemental views and ultrasound if indicated.
== END | disposition home or self-care (01) ==
LOC: RADMAMWWP 12:11
PROVIDERS: ATTEND Internal Medicine Geriatric Medicine
DX: Z12.31 Encounter for screening mammogram for malignant neoplasm of breast (principal)
CPT/HCPCS: 77063; 77067

== ENCOUNTER → 2019-06-17 | Outpatient (CLI) | payer MEDICAID, BC ==
--- NOTE | 2019-06-18 10:18 | MM ---
Reason for exam: screening (asymptomatic). Last mammogram was performed less than 1 month ago. History: Patient is postmenopausal and has history of other cancer at age 61. Benign cyst aspiration of the left breast, November 07, 1997. Excisional biopsy of the left breast. Took hormonal contraceptives for 2 years. Took estrogen for 3 years 1 month. Physical Findings: A clinical breast exam by your physician is recommended on an annual basis and results should be correlated with mammographic findings. MG 3D Work Up W/Cad LT Spot compression CC, spot compression MLO, and ML view(s) were taken of the left breast. Prior study comparison: June 10, 2019, bilateral MG 3d screening mammo w/cad. May 26, 2018, bilateral MG 3d screening mammo w/cad. The breast tissue is heterogeneously dense. This may lower the sensitivity of mammography. Architectural distortion on the left corresponds to the excisional site, benign. These results were verbally communicated with the patient and result sheet given to the patient on 06/17/19. ASSESSMENT: Benign, BI-RAD 2 RECOMMENDATION: Return to routine screening mammogram schedule for both breasts.
== END | disposition home or self-care (01) ==
LOC: RADMAMWWP 14:50
PROVIDERS: ATTEND Internal Medicine Geriatric Medicine
DX: R92.8 Other abnormal and inconclusive findings on diagnostic imaging of breast (principal)
CPT/HCPCS: 77061; 77065

== ENCOUNTER → 2019-06-18 | Outpatient (CLI) | payer MEDICAID, BC ==
[2019-06-18 11:16] LABS: Basophils % (A) 0 %; Eosinophils # (A) 0.2 k/uL (0-0.7); Eosinophils % (A) 4 %; HCT 42.3 % (34.0-46.0); HGB 14.2 gm/dL (11.4-16.0); Lymphocytes # (A) 1.5 k/uL (1.0-4.8); Lymphocytes % (A) 26 %; MCH 31.2 pg (25.0-35.0); MCHC 33.6 g/dL (31.0-37.0); MCV 92.9 fL (80.0-100.0); Mean Platelet Volume 9.8; Monocytes # (A) 0.4 k/uL (0-1.0); Monocytes % (A) 7 %; Neutrophils # (A) 3.5 k/uL (1.3-7.7); Neutrophils % (A) 61 %; Platelet Count 143 k/uL (150-450); RBC 4.55 m/uL (3.80-5.40); RDW 12.8 % (11.5-15.5); WBC 5.7 k/uL (3.8-10.6)
[2019-06-18 11:36] LABS: Appearance,Urine Clear (Clear); Bilirubin,Urine Negative (Negative); Blood,Urine Negative (Negative); Color,Urine Yellow; Glucose,Urine (UA) Negative (Negative); Ketones,Urine Negative (Negative); Leukocyte Esterase,Urine Moderate (Negative); Mucus,Urine Rare /hpf; Nitrite,Urine Negative (Negative); Protein,Urine Negative (Negative); RBC,Urine 1 /hpf (0-5); Specific Gravity,Urine 1.018 (1.001-1.035); Squamous Epithelial Cell,Urine <1 /hpf (0-4); Urobilinogen,Urine <2.0 mg/dL (<2.0); WBC,Urine 2 /hpf (0-5)
[2019-06-18 11:46] LABS: Protein/Creatinine Ratio,Urine 0.07
[2019-06-18 16:46] LABS: % Iron Saturation 32.03 (12.00-45.00); African American GFR (CKD) 42.2 (60.0-200.0); Albumin 4.6 g/dL (3.80-4.90); Albumin/Globulin Ratio 2.09 (1.60-3.17); BUN/Creat Ratio 16.67 Ratio (12.00-20.00); Calcium 9.7 mg/dL (8.7-10.3); Chol/HDL Ratio 4.33; Globulin 2.2 g/dL (1.6-3.3); LDL Cholesterol,Calculated 167.8 mg/dL (0.0-131.0); Non-African American GFR(CKD) 36.4 (60.0-200.0); Phosphorus 3.2 mg/dL (2.4-5.1); Potassium 4.2 mmol/L (3.5-5.5); Total Bilirubin 1.1 mg/dL (0.3-1.2); Total Protein 6.8 g/dL (6.2-8.2); Uric Acid 6.8 mg/dL (2.9-7.7); VLDL Calculation 42.2 mg/dL (5.00-40.00)
[2019-06-18 16:55] LABS: Ferritin 106.8 ng/mL (10.0-291.0)
== END | disposition home or self-care (01) ==
LOC: LABWHC1 10:01
PROVIDERS: ATTEND Internal Medicine Nephrology
DX: E78.2 Mixed hyperlipidemia (principal); N18.3 Chronic kidney disease, stage 3 (moderate); E55.9 Vitamin D deficiency, unspecified; N25.81 Secondary hyperparathyroidism of renal origin; M10.9 Gout, unspecified; N39.0 Urinary tract infection, site not specified; D63.1 Anemia in chronic kidney disease; R80.9 Proteinuria, unspecified
CPT/HCPCS: 36415; 80053; 80061; 81001; 82306; 82570; 82728; 83540; 83550; 83735; 83970; 84100; 84156; 84550; 85025

== ENCOUNTER → 2019-09-13 | Outpatient (CLI) | payer MEDICAID, BC ==
--- NOTE | 2019-09-13 15:38 | CT ---
EXAMINATION TYPE: CT chest wo con DATE OF EXAM: 09/13/2019 COMPARISON: Chest x-ray dated 02/19/2019 HISTORY: Cough 6-[address] DLP: 196 mGycm. Automated Exposure Control for Dose Reduction was Utilized. TECHNIQUE: CT scan of the thorax is performed without IV contrast. Limited sections were performed u sing high-resolution algorithm in both supine and prone positions. FINDINGS: There is motion on the exam. LUNGS: The lungs are grossly clear, there is no concerning parenchymal mass or nodule identified. No significant interstitial changes or bronchiectasis. No interlobular septal pleural thickening. There is no pleural effusion or pneumothorax seen. The tracheobronchial tree is patent. MEDIASTINUM: Lack of IV contrast is noted to limit evaluation for mediastinal and especially hilar ad enopathy. There are no definitive greater than 1 cm hilar or mediastinal lymph nodes. No cardiomega ly or pericardial effusion is seen. OTHER: Suspect a posterior diaphragmatic hernia on the right. Left kidney not seen in the left renal fossa. Mild coronary artery calcification noted. IMPRESSION: Posterior diaphragmatic hernia contains fat. Mild coronary artery disease. Left kidney no t visualized as described. Motion on the exam.
== END | disposition home or self-care (01) ==
LOC: CPPFTMAIN 13:03
PROVIDERS: ATTEND Internal Medicine Critical Care Medicine
DX: R05 Cough (principal); K44.9 Diaphragmatic hernia without obstruction or gangrene
CPT/HCPCS: 71250; 94060; 94726; 94729

== ENCOUNTER → 2019-11-17 | Outpatient (CLI) | payer MEDICAID, BC ==
[2019-11-17 14:09] LABS: Basophils % (A) 0 %; Eosinophils # (A) 0.3 k/uL (0-0.7); Eosinophils % (A) 4 %; HCT 42.3 % (34.0-46.0); Lymphocytes # (A) 1.9 k/uL (1.0-4.8); Lymphocytes % (A) 29 %; MCH 31.3 pg (25.0-35.0); MCHC 33.2 g/dL (31.0-37.0); MCV 94.3 fL (80.0-100.0); Mean Platelet Volume 10.2; Monocytes # (A) 0.4 k/uL (0-1.0); Monocytes % (A) 7 %; Neutrophils # (A) 3.7 k/uL (1.3-7.7); Neutrophils % (A) 58 %; Platelet Count 143 k/uL (150-450); RBC 4.49 m/uL (3.80-5.40); RDW 12.4 % (11.5-15.5); WBC 6.4 k/uL (3.8-10.6)
[2019-11-17 19:44] LABS: African American GFR (CKD) 39.1 (60.0-200.0); Albumin 4.6 g/dL (3.80-4.90); Albumin/Globulin Ratio 2.09 (1.60-3.17); Anion Gap 11.4 mmol/L (4.00-12.00); Calcium 9.9 mg/dL (8.7-10.3); Carbon Dioxide 23.6 mmol/L (21.6-31.8); Chol/HDL Ratio 2.8; Globulin 2.2 g/dL (1.6-3.3); LDL Cholesterol,Calculated 87.6 mg/dL (0.0-131.0); Non-African American GFR(CKD) 33.7 (60.0-200.0); Potassium 4.3 mmol/L (3.5-5.5); Total Bilirubin 1.3 mg/dL (0.2-1.2); Total Protein 6.8 g/dL (6.2-8.2); VLDL Calculation 22.4 mg/dL (5.00-40.00)
[2019-11-17 19:52] LABS: T4, Free (Free Thyroxine) 1.6 ng/dL (0.80-1.80)
== END | disposition home or self-care (01) ==
LOC: LABWHC1 12:08
PROVIDERS: ATTEND Internal Medicine Geriatric Medicine
DX: C79.00 Secondary malignant neoplasm of unspecified kidney and renal pelvis (principal); E21.5 Disorder of parathyroid gland, unspecified; N18.9 Chronic kidney disease, unspecified; E78.2 Mixed hyperlipidemia
CPT/HCPCS: 36415; 80053; 80061; 83970; 84439; 84443; 85025; 88108

== ENCOUNTER → 2020-05-01 | Outpatient (CLI) | payer MEDICARE, BC ==
--- NOTE | 2020-05-02 00:52 | MR ---
EXAMINATION TYPE: MR knee LT wo con DATE OF EXAM: 05/01/2020 COMPARISON: None HISTORY: RT knee pain Multiplanar multiecho imaging of the left knee was performed without contrast. There is a mild knee joint effusion. The anterior and posterior cruciate ligaments are intact. There is abnormal increased signal in the posterior horn of the medial meniscus consistent with complex tea r. There is also some medial displacement of the medial meniscus with horizontal defect through the m edial aspect of the medial meniscus. The collateral ligaments are intact. There is no evidence of a f racture. I see no bony destructive process. There is minor spurring of the femoral and tibial condyle s. The patella is intact. There is small areas of degenerative cyst formation in the articular surfac e of the posterior aspect of the medial femoral condyle. The lateral meniscus appears intact. IMPRESSION: No evidence of ligamentous tear. No fracture seen. There is complex tear of the medial and posterior aspect of the medial meniscus. There are some early osteoarthritic changes. Mild knee joint effusion.
== END | disposition home or self-care (01) ==
LOC: RADMRIMAIN 12:45
PROVIDERS: ATTEND Orthopaedic Surgery
DX: S83.232A Complex tear of medial meniscus, current injury, left knee, initial encounter (principal); M17.12 Unilateral primary osteoarthritis, left knee

== ENCOUNTER → 2020-05-11 | Outpatient (CLI) | payer MEDICARE, BC ==
[2020-05-11 14:49] LABS: Basophils % (A) 0 %; Eosinophils # (A) 0.2 k/uL (0-0.7); Eosinophils % (A) 3 %; HCT 40.9 % (34.0-46.0); HGB 13.5 gm/dL (11.4-16.0); Lymphocytes # (A) 2.1 k/uL (1.0-4.8); Lymphocytes % (A) 30 %; MCH 31.1 pg (25.0-35.0); MCHC 33.1 g/dL (31.0-37.0); MCV 93.9 fL (80.0-100.0); Mean Platelet Volume 9.3; Monocytes # (A) 0.5 k/uL (0-1.0); Monocytes % (A) 7 %; Neutrophils # (A) 3.9 k/uL (1.3-7.7); Neutrophils % (A) 57 %; Platelet Count 150 k/uL (150-450); RBC 4.36 m/uL (3.80-5.40); RDW 13.1 % (11.5-15.5); WBC 6.8 k/uL (3.8-10.6)
[2020-05-11 14:55] LABS: Potassium 4.3 mmol/L (3.5-5.1)
== END | disposition home or self-care (01) ==
LOC: LABPAT 13:23
PROVIDERS: ATTEND Orthopaedic Surgery
DX: Z01.818 Encounter for other preprocedural examination (principal); M23.92 Unspecified internal derangement of left knee
CPT/HCPCS: 80051; 85025; 93005

== ENCOUNTER 2020-05-25 09:42 | Day surgery (SDC) | payer MEDICARE, BC ==
[2020-05-23 09:02] VITALS: BMI 26.7
--- NOTE | 2020-05-24 17:54 | HP ---
HISTORY AND PHYSICAL DATE OF SURGERY: 05/25/2020 Val Pagan is a 65-year-old patient seen with progressive left knee pain. Options for treatment were discussed. She elected to proceed with arthroscopy. Consent was obtained. PAST MEDICAL HISTORY: Hyperlipidemia, hypertension. PAST SURGICAL HISTORY: Nephrectomy. DAILY MEDICATIONS: Crestor, hydrochlorothiazide, Coreg. ALLERGIES: NONE. SOCIAL HISTORY: She denies tobacco use. PHYSICAL EVALUATION OF THE LEFT KNEE: Range of motion is zero to 130. Mild effusion. Tender medial joint line. Positive medial Maria G's. Ligaments stable. Hip rotation without pain. Distal neurovascular exam intact. RADIOGRAPHS: Radiographs of the left knee revealed mild osteoarthritis. MRI of the left knee revealed complex medial meniscal tear. IMPRESSION: 1. Internal derangement of left knee with medial meniscal tear. 2. Hypertension. 3. Hyperlipidemia. PLAN: Left knee arthroscopy with partial meniscectomy and debridement. MMODL / IJN: [id number] /
[~2020-05-25 09:42] MED LIST: DEXAMETHASONE SOD PHOSPHATE 4 MG/ML 1 ML VIAL IV ONE; HYDROmorphone 0.5 MG/0.5 ML SYRINGE IVP PRN; LACTATED RINGERS 1,000 ML IV SCH; ONDANSETRON 4 MG/2 ML VIAL IVP ONE
[2020-05-25 10:19] VITALS: RESP 16; TEMP 97
[2020-05-25] MEDS ORDERED: PROPOFOL 10 MG/ML 20 ML VIAL IV ONE (11:30)
[2020-05-25] MEDS ORDERED: MIDAZOLAM 2 MG/2 ML VIAL ONE (11:30)
[2020-05-25] MEDS ORDERED: fentaNYL (PF) 50 MCG/ML 2 ML AMP ONE (11:30)
[2020-05-25] MEDS ORDERED: ROPIVACAINE 5 MG/ML 30 ML VIAL ONE (11:30)
[2020-05-25] MEDS ORDERED: LACTATED RINGERS 1,000 ML IV ONE (12:26)
--- NOTE | 2020-05-25 12:31 | P.OP ---
Date of Procedure: 05/25/20 Preoperative Diagnosis: Internal derangement left knee Postoperative Diagnosis: 1. Tear medial meniscus left knee 2. Grade 2/3 chondromalacia medial femoral condyle left knee 3. Reactive synovitis medial, lateral and suprapatellar compartments left knee Procedure(s) Performed: 1. Arthroscopic partial medial meniscectomy left knee 2. Arthroscopic chondroplasty medial femoral condyle left knee 3. Arthroscopic partial synovectomy medial, lateral and suprapatellar compartments left knee Anesthesia: spinal Surgeon: Gen Reich Estimated Blood Loss (ml): 7 Pathology: none sent Condition: stable Disposition: PACU Indications for Procedure: 65-year-old patient seen with progressive left knee pain. After options for treatment were discussed with her, she elected to proceed with arthroscopy. Operative Findings: See description of procedure Description of Procedure: Patient was taken to the operative suite. Patient underwent a general anesthetic by the department of anesthesia. Patient was given preoperative antibiotics. The left lower extremity was placed in a well-padded arthroscopic leg urrutia. The left leg was prepped and draped in the normal sterile orthopedic fashion. A lateral parapatellar and suprapatellar incision was made. Trochars were inserted. Arthroscopy was initiated. Suprapatellar pouch revealed diffuse thick reactive synovitis. The patellofemoral joint appeared to articulate congruently. There with grade 1/2 chondral malacia of the patellofemoral joint, or were no osteochondral tears present. The scope was guided into the medial gutter. There were no loose bodies, there was no plica. The scope was then guided into the medial compartment. A medial parapatellar incision was made. Trocar inserted followed by probe. There was a complex tear involving the posterior horn medial meniscus. There were grade 2/3 chondral moist changes diffusely about the weightbearing surface medial femoral condyle with some diffuse osteochondral tears present. There was some thick reactive synovitis anteriorly. I performed a partial medial meniscectomy getting down to stable meniscal tissue. I performed a chondroplasty of the medial femoral condyle getting down to stable osteochondral tissue. I performed a partial synovectomy decompressing the reactive synovitis anteriorly. I now probed the residual meniscus was found to be stable. The residual osteochondral surface of the medial femoral condyle was stable, I again noted grade 2/3 chondromalacia there. There was good decompression of the synovitis. Scope and probe were then guided into the intercondylar notch. Cruciates were identified, probed and found to be stable. The scope and probe were then guided into lateral compartment. Meniscal meniscus was probed and found to be stable. There was some mild superficial fraying about the midbody area. There was very mild grade 1 chondromalacia. There was some reactive synovitis anteriorly. A motorize shaver was introduced I debrided that area fraying midbody lateral meniscus. I now performed a partial synovectomy decompressing reactive synovitis. Shaver was removed. There was good decompression of synovitis. The scope was in guided back into the suprapatellar compartment. I introduced a motorized shaver into the suprapatellar compartment. I debrided some piecemeal fragments of meniscus I encountered. I performed a partial synovectomy decompressing the thick reactive synovitis. The shaver was removed. Was good decompression of synovitis. I again noted grade 1/2 chondromalacia of the patellofemoral joint. I took one more look on the entire knee, no residual debris. Instruments were now removed from the joint. The joint was infiltrated with .25% Marcaine. Steri-Strips were applied to the portal sites. Sterile dressings were applied. The patient was placed into a ELIEL hose. No tourniquet was utilized. The patient was awakened, transferred to a bed and taken to recovery stable satisfactory condition.
[2020-05-25 13:47] VITALS: BP 143/87; PULSE 66
--- NOTE | 2020-05-26 07:03 | P.ANPRN ---
Procedure Note - Anesthesia - Nerve Block Performed Left Erector Spinae Single Time Out Performed: Yes Date of Procedure: 05/25/20 Procedure Start Time: 13:09 Procedure Stop Time: 13:12 Location of Patient: PreOp (1311) Indication: Acute Post-Operative Pain, Requested by Surgeon Sedation Type: Sedate with meaningful contact maintained Preparation: Sterile Prep Position: Supine Needle Types: Pajunk Needle Gauge: 21 Ultrasound used to visualize needle placement: Yes Ultrasound used to observe medication spread: Yes Blood Aspirated: No Pain Paresthesia on Injection Noted: No Resistance on Injection: Normal Image Stored and Saved: Yes Events: Uneventful and Well Tolerated (ropi .5% 30cc plus dexamethasone 4mg)
== END 2020-05-25 14:33 | disposition home or self-care (01) ==
LOC: OR 09:42
PROVIDERS: ATTEND Orthopaedic Surgery
DX: M23.222 Derangement of posterior horn of medial meniscus due to old tear or injury, left knee (principal); M94.262 Chondromalacia, left knee; M65.862 Other synovitis and tenosynovitis, left lower leg; M23.301 Other meniscus derangements, unspecified lateral meniscus, left knee; I10 Essential (primary) hypertension; E78.5 Hyperlipidemia, unspecified; Z90.5 Acquired absence of kidney; Z79.899 Other long term (current) drug therapy; Z79.82 Long term (current) use of aspirin; Z85.528 Personal history of other malignant neoplasm of kidney
CPT/HCPCS: 29880; 64999; 76942; J2250; J1100; J0690; J2405; J3010; J2795; J2704; 64447

== ENCOUNTER → 2020-06-14 | Outpatient (CLI) | payer MEDICARE, BC ==
--- NOTE | 2020-06-16 11:54 | MM ---
Reason for exam: screening (asymptomatic). Last mammogram was performed 1 year ago. History: Patient is postmenopausal and has history of other cancer at age 61. Benign cyst aspiration of the left breast, November 07, 1997. Excisional biopsy of the left breast. Took hormonal contraceptives for 2 years. Took estrogen for 3 years 1 month. Physical Findings: A clinical breast exam by your physician is recommended on an annual basis and results should be correlated with mammographic findings. MG 3D Screening Mammo W/Cad Bilateral CC and MLO view(s) were taken. Prior study comparison: June 17, 2019, left breast MG 3d work up w/cad LT. June 10, 2019, bilateral MG 3d screening mammo w/cad. The breast tissue is heterogeneously dense. This may lower the sensitivity of mammography. Benign oil cyst and vascular calcifications. Possible partially obscured 1.7cm nodule subareolar left MLO. Questionable distortion on 3D lateral left CC view. ASSESSMENT: Incomplete: need additional imaging evaluation, BI-RAD 0 RECOMMENDATION: Special view mammogram of the left breast. (3D) If lesion persists on supplemental views, image directed ultrasound is recommended. [facility] will attempt to contact patient to return for supplemental views and ultrasound if indicated.
== END | disposition home or self-care (01) ==
LOC: RADMAMWWP 13:48
PROVIDERS: ATTEND Internal Medicine Geriatric Medicine
DX: Z12.31 Encounter for screening mammogram for malignant neoplasm of breast (principal)
CPT/HCPCS: 77063; 77067

== ENCOUNTER → 2020-07-10 | Outpatient (CLI) | payer MEDICARE, BC ==
--- NOTE | 2020-07-11 11:47 | MM ---
Reason for exam: additional evaluation requested from abnormal screening. Last mammogram was performed 1 month ago. History: Patient is postmenopausal and has history of other cancer at age 61. Benign cyst aspiration of the left breast, November 07, 1997. Excisional biopsy of the left breast. Took hormonal contraceptives for 2 years. Took estrogen for 3 years 1 month. Physical Findings: Nurse did not find any significant physical abnormalities on exam. MG 3D Work Up W/Cad LT Spot compression CC, spot compression MLO, and LM view(s) were taken of the left breast. Prior study comparison: June 14, 2020, bilateral MG 3d screening mammo w/cad. June 17, 2019, left breast MG 3d work up w/cad LT. The breast tissue is heterogeneously dense. This may lower the sensitivity of mammography. The distortion does not clearly persist on additional views. Given appearance on screening, precautionary 6 month follow up recommended. These results were verbally communicated with the patient and result sheet given to the patient on 07/10/20. ASSESSMENT: Probably benign, BI-RAD 3 RECOMMENDATION: Follow-up diagnostic mammogram of the left breast in 6 months.
== END | disposition home or self-care (01) ==
LOC: RADMAMWWP 14:48
PROVIDERS: ATTEND Internal Medicine Geriatric Medicine
DX: R92.8 Other abnormal and inconclusive findings on diagnostic imaging of breast (principal); Z78.0 Asymptomatic menopausal state
CPT/HCPCS: 77065; G0279; 77061

== ENCOUNTER → 2020-07-14 | Outpatient (CLI) | payer MEDICARE, BC ==
[2020-07-14 21:40] LABS: HCT 39.6 % (37.2-46.3); HGB 12.9 g/dL (12.0-15.0); MCH 31.4 pg (27.0-32.0); MCHC 32.6 g/dL (32.0-37.0); MCV 96.4 fL (80.0-97.0); Mean Platelet Volume 12.8 fL (9.5-12.2); Platelet Count 163 X 10*3/uL (140-440); RBC 4.11 X 10*6/uL (4.10-5.20); RDW 12.6 % (11.5-14.5); WBC 7.46 X 10*3/uL (4.50-10.00)
[2020-07-15 02:41] LABS: African American GFR (CKD) 38.8 (60.0-200.0); Albumin 4.6 g/dL (3.80-4.90); Albumin/Globulin Ratio 2.42 (1.60-3.17); Anion Gap 13.3 mmol/L (4.00-12.00); BUN/Creat Ratio 17.5 Ratio (12.00-20.00); Calcium 9.7 mg/dL (8.7-10.3); Carbon Dioxide 21.7 mmol/L (21.6-31.8); Globulin 1.9 g/dL (1.6-3.3); Non-African American GFR(CKD) 33.5 (60.0-200.0); Potassium 3.8 mmol/L (3.5-5.5); Total Protein 6.5 g/dL (6.2-8.2)
== END | disposition home or self-care (01) ==
LOC: LABWHC1 13:14
PROVIDERS: ATTEND Nurse Practitioner Gerontology
DX: C64.2 Malignant neoplasm of left kidney, except renal pelvis (principal)
CPT/HCPCS: 36415; 80053; 83036; 85027; 87086

== ENCOUNTER → 2020-09-21 | Outpatient (CLI) | payer MEDICARE, BC ==
--- NOTE | 2020-09-21 12:02 | XR ---
EXAMINATION TYPE: XR chest 2V DATE OF EXAM: 09/21/2020 COMPARISON: 02/19/2019 TECHNIQUE: PA and lateral views submitted. HISTORY: Renal cell carcinoma FINDINGS: The lungs are clear and there is no pneumothorax, pleural effusion, or focal pneumonia. Heart size normal. No overt failure. No sizable pulmonary nodules. Biapical pleural thickening appears chronic. Mild hyperinflation. Hypertrophic and degenerative change of the spine. IMPRESSION: 1. No acute process.
--- NOTE | 2020-09-21 13:47 | CT ---
EXAMINATION TYPE: CT abdomen wo con DATE OF EXAM: 09/21/2020 COMPARISON: 08/11/2018 HISTORY: Malignant neoplasm of kidney. Follow up. CT DLP: 294.5 mGycm Automated exposure control for dose reduction was used. TECHNIQUE: Helical acquisition of images was performed from the lung bases through the top of iliac crest to include entire abdomen. CONTRAST: Performed with Oral Contrast and without IV contrast. FINDINGS: LUNG BASES: No significant abnormality is appreciated. LIVER/GB: No significant abnormality is appreciated. PANCREAS: No significant abnormality is seen. SPLEEN: No significant abnormality is seen. ADRENALS: No significant abnormality is seen. KIDNEYS: Post left nephrectomy changes with no diagnostic evidence of recurrent BOWEL: No significant abnormality is seen. LYMPH NODES: No significant abnormality is appreciated. OSSEOUS STRUCTURES: No significant abnormality is seen. OTHER: Grade 1 anterolisthesis L4 on L5. Multilevel mild hypertrophic changes. IMPRESSION: 1. Post left nephrectomy changes. No suspicious appearing mass within the left nephrectomy bed.
== END | disposition home or self-care (01) ==
LOC: RADCTMAIN 11:24
PROVIDERS: ATTEND Urology
DX: C64.9 Malignant neoplasm of unspecified kidney, except renal pelvis (principal); Z90.5 Acquired absence of kidney
CPT/HCPCS: 71046; 74150

== ENCOUNTER → 2020-11-30 | Outpatient (CLI) | payer MEDICARE, BC ==
[2020-11-30 19:00] LABS: Basophils # (A) 0.02 X 10*3/uL (0.00-0.10); Basophils % (A) 0.3 %; Eosinophils # (A) 0.06 X 10*3/uL (0.04-0.35); HCT 38.4 % (37.2-46.3); HGB 12.7 g/dL (12.0-15.0); Lymphocytes # (A) 1.97 X 10*3/uL (0.90-5.00); Lymphocytes % (A) 31.8 %; MCH 31.9 pg (27.0-32.0); MCHC 33.1 g/dL (32.0-37.0); MCV 96.5 fL (80.0-97.0); Mean Platelet Volume 12.8 fL (9.5-12.2); Monocytes # (A) 0.63 X 10*3/uL (0.20-1.00); Monocytes % (A) 10.2 %; Neutrophils % (A) 56.5 %; Platelet Count 159 X 10*3/uL (140-440); RBC 3.98 X 10*6/uL (4.10-5.20); RDW 12.4 % (11.5-14.5); WBC 6.19 X 10*3/uL (4.50-10.00)
[2020-11-30 20:21] LABS: African American GFR (CKD) 49.9 (60.0-200.0); Albumin 4.6 g/dL (3.80-4.90); Albumin/Globulin Ratio 2.09 (1.60-3.17); BUN/Creat Ratio 20.77 Ratio (12.00-20.00); Calcium 9.4 mg/dL (8.7-10.3); Chol/HDL Ratio 2.86; Globulin 2.2 g/dL (1.6-3.3); Potassium 4.1 mmol/L (3.5-5.5); Total Bilirubin 1.2 mg/dL (0.2-1.2); Total Protein 6.8 g/dL (6.2-8.2)
[2020-11-30 21:37] LABS: Hemoglobin A1C 4.7 % (4.0-6.0)
== END | disposition home or self-care (01) ==
LOC: LABWHC1 12:37
PROVIDERS: ATTEND Internal Medicine Geriatric Medicine
DX: N18.9 Chronic kidney disease, unspecified (principal); E78.2 Mixed hyperlipidemia; R79.9 Abnormal finding of blood chemistry, unspecified
CPT/HCPCS: 36415; 80053; 80061; 83036; 84443; 85025

== ENCOUNTER → 2021-01-11 | Outpatient (CLI) | payer MEDICARE, BC ==
--- NOTE | 2021-01-11 13:42 | MM ---
Reason for exam: follow-up at short interval from prior study. Last mammogram was performed 6 months ago. History: Patient is postmenopausal and has history of other cancer at age 61. Benign cyst aspiration of the left breast, November 07, 1997. Excisional biopsy of the left breast. Took hormonal contraceptives for 2 years. Took estrogen for 3 years 1 month. Physical Findings: Nurse did not find any significant physical abnormalities on exam. MG 3D Diag Mammo W/Cad LT CC and MLO view(s) were taken of the left breast. Prior study comparison: July 10, 2020, left breast MG 3d work up w/cad LT. June 14, 2020, bilateral MG 3d screening mammo w/cad. June 10, 2019, bilateral MG 3d screening mammo w/cad. May 26, 2018, bilateral MG 3d screening mammo w/cad. The breast tissue is heterogeneously dense. This may lower the sensitivity of mammography. Lateral anterior asymmetric density unchanged for 6 months. An additional short interval follow up recommended. These results were verbally communicated with the patient and result sheet given to the patient on 01/11/21. ASSESSMENT: Probably benign, BI-RAD 3 RECOMMENDATION: Follow-up diagnostic mammogram of both breasts in 5 months. Back on schedule.
== END | disposition home or self-care (01) ==
LOC: RADMAMWWP 12:41
PROVIDERS: ATTEND Internal Medicine Geriatric Medicine
DX: N64.89 Other specified disorders of breast (principal); Z78.0 Asymptomatic menopausal state
CPT/HCPCS: 77065; G0279; 77061

== ENCOUNTER → 2021-06-15 | Outpatient (CLI) | payer MEDICARE, BC ==
--- NOTE | 2021-06-15 15:05 | MM ---
Reason for exam: follow-up at short interval from prior study. Last mammogram was performed 5 months ago. History: Patient is postmenopausal and has history of other cancer at age 61. Benign cyst aspiration of the left breast, November 07, 1997. Excisional biopsy of the left breast. Took hormonal contraceptives for 2 years. Took estrogen for 3 years 1 month. Physical Findings: A clinical breast exam by your physician is recommended on an annual basis and results should be correlated with mammographic findings. MG 3D Diag Mammo W/Cad ANI Bilateral CC and MLO view(s) were taken. Prior study comparison: January 11, 2021, left breast MG 3d diag mammo w/cad LT. July 10, 2020, left breast MG 3d work up w/cad LT. The breast tissue is heterogeneously dense. This may lower the sensitivity of mammography. Stable benign calcifications. There is no discrete abnormality. No significant new findings when compared with previous films. These results were verbally communicated with the patient and result sheet given to the patient on 06/15/21. ASSESSMENT: Benign, BI-RAD 2 RECOMMENDATION: Routine screening mammogram of both breasts in 1 year.
== END | disposition home or self-care (01) ==
LOC: RADMAMWWP 14:04
PROVIDERS: ATTEND Internal Medicine Geriatric Medicine
DX: R92.2 Inconclusive mammogram (principal); Z78.0 Asymptomatic menopausal state
CPT/HCPCS: 77066; G0279; 77062

== ENCOUNTER → 2021-08-01 | Outpatient (CLI) | payer MEDICARE, BC ==
[2021-08-01 19:54] LABS: Basophils # (A) 0.03 X 10*3/uL (0.00-0.10); Basophils % (A) 0.5 %; Eosinophils # (A) 0.11 X 10*3/uL (0.04-0.35); Eosinophils % (A) 1.7 %; HCT 39.3 % (37.2-46.3); HGB 12.8 g/dL (12.0-15.0); Immature Grans, Automated 0.3 %; Lymphocytes # (A) 1.93 X 10*3/uL (0.90-5.00); Lymphocytes % (A) 30.6 %; MCH 31.5 pg (27.0-32.0); MCHC 32.6 g/dL (32.0-37.0); MCV 96.8 fL (80.0-97.0); Mean Platelet Volume 12.6 fL (9.5-12.2); Monocytes # (A) 0.78 X 10*3/uL (0.20-1.00); Monocytes % (A) 12.4 %; NRBC Per 100 WBC 0 /100 WBCS (0.0-0.0); Neutrophils # (A) 3.44 X 10*3/uL (1.80-7.70); Neutrophils % (A) 54.5 %; Platelet Count 142 X 10*3/uL (140-440); RBC 4.06 X 10*6/uL (4.10-5.20); RDW 12.4 % (11.5-14.5); WBC 6.31 X 10*3/uL (4.50-10.00)
[2021-08-01 21:56] LABS: ALT 22 U/L (8-44); AST 22 U/L (13-35); African American GFR (CKD) 48.6 (60.0-200.0); Albumin 4.6 g/dL (3.8-4.9); Albumin/Globulin Ratio 1.89 (1.60-3.17); Alkaline Phosphatase 74 U/L (41-126); Blood Urea Nitrogen 29.7 mg/dL (9.0-27.0); Calcium 9.6 mg/dL (8.7-10.3); Carbon Dioxide 21.9 mmol/L (20.0-27.5); Chloride 105 mmol/L (96-109); Chol/HDL Ratio 3.23 Ratio; Globulin 2.4 g/dL (1.6-3.3); Glucose 94 mg/dL (70-110); Non-African American GFR(CKD) 41.9 (60.0-200.0); Potassium 4.8 mmol/L (3.5-5.5); Sodium 140 mmol/L (135-145); Total Protein 7.1 g/dL (6.2-8.2)
== END | disposition home or self-care (01) ==
LOC: LABWHC1 11:59
PROVIDERS: ATTEND Internal Medicine Geriatric Medicine
DX: Z00.00 Encounter for general adult medical examination without abnormal findings (principal); N18.9 Chronic kidney disease, unspecified; R73.9 Hyperglycemia, unspecified; E78.2 Mixed hyperlipidemia
CPT/HCPCS: 36415; 80053; 80061; 83036; 84443; 85025

== ENCOUNTER → 2021-08-02 | Outpatient (CLI) | payer MEDICARE, BC ==
--- NOTE | 2021-08-02 23:19 | CT ---
EXAMINATION TYPE: CT abdomen pelvis wo con DATE OF EXAM: 08/02/2021 COMPARISON: CT abdomen 09/21/2020 HISTORY: left sided abdominal pain CT DLP: 396.4 mGycm. Automated Exposure Control for Dose Reduction was Utilized. TECHNIQUE: Multiple contiguous axial CT images of the performed from the lung bases through the pubic symphysis without the administration of intravenous contrast. 2-D sagittal and coronal reformatted i mages were obtained. FINDINGS: Lung bases are clear. Liver, spleen, pancreas, and bilateral adrenal glands have an unremarkable unenhanced appearance. Gallbladder is present. No definite intrahepatic or extrahepatic biliary ductal dilatation. Status post left nephrectomy. No right sided hydronephrosis. No renal or ureteral calculi. Urinary bl adder appears unremarkable. Uterus is absent. No adnexal masses. No free fluid. Visualized bowel is of normal caliber without evidence of obstruction. No significant mesenteric infl ammation. Mild burden of distal colonic diverticulosis without adjacent inflammatory changes. Appendi x appears unremarkable. No free air. Abdominal aorta is of normal caliber. No intra-abdominal or retroperitoneal lymphadenopathy. Subcutan eous soft tissues appear unremarkable. Osseous structures appear intact. Multilevel degenerative pierce ges of the lumbar spine with grade 1 anterolisthesis of L4-5. IMPRESSION: 1. No acute intra-abdominal process or obstructive uropathy. 2. Status post left nephrectomy without evidence of recurrence.
== END | disposition home or self-care (01) ==
LOC: RADCTMAIN 16:46
PROVIDERS: ATTEND Internal Medicine Geriatric Medicine
DX: R10.9 Unspecified abdominal pain (principal); Z90.5 Acquired absence of kidney
CPT/HCPCS: 74176

== ENCOUNTER → 2021-11-19 | Outpatient (CLI) | payer MEDICARE, BC ==
[2021-11-19 12:03] LABS: Partial Thromboplastin Time 24.7 sec (22.0-30.0); Prothrombin Time 10.6 sec (9.0-12.0)
[2021-11-19 19:59] LABS: HCT 42.2 % (37.2-46.3); HGB 14.2 g/dL (12.0-15.0); MCH 31.5 pg (27.0-32.0); MCHC 33.6 g/dL (32.0-37.0); MCV 93.6 fL (80.0-97.0); Mean Platelet Volume 13.6 fL (9.5-12.2); NRBC Per 100 WBC 0 /100 WBCS (0.0-0.0); Platelet Count 149 X 10*3/uL (140-440); RBC 4.51 X 10*6/uL (4.10-5.20); RDW 12.8 % (11.5-14.5); WBC 6.69 X 10*3/uL (4.50-10.00)
[2021-11-19 20:08] LABS: African American GFR (CKD) 42.7 (60.0-200.0); Albumin 5.1 g/dL (3.8-4.9); Albumin/Globulin Ratio 2.49 (1.60-3.17); Anion Gap 13.6 mmol/L (10.00-18.00); BUN/Creat Ratio 18.64 Ratio (12.00-20.00); Blood Urea Nitrogen 27.4 mg/dL (9.0-27.0); Carbon Dioxide 24.9 mmol/L (20.0-27.5); Non-African American GFR(CKD) 36.8 (60.0-200.0); Potassium 4.1 mmol/L (3.5-5.5); Total Protein 7.1 g/dL (6.2-8.2)
[2021-11-19 20:35] LABS: Appearance,Urine Clear (Clear); Bilirubin,Urine Negative (Negative); Blood,Urine Negative (Negative); Color,Urine Yellow (Yellow); Ketones,Urine Negative (Negative); Nitrite,Urine Negative (Negative); Specific Gravity,Urine 1.013 (1.001-1.030); Urobilinogen,Urine 0.2 (0.2,1.0)
[2021-11-19 20:45] LABS: Bacteria,Urine None Seen /HPF (None Seen)
== END | disposition home or self-care (01) ==
LOC: LABPAT 11:08
PROVIDERS: ATTEND Orthopaedic Surgery
DX: Z01.812 Encounter for preprocedural laboratory examination (principal); M17.12 Unilateral primary osteoarthritis, left knee
CPT/HCPCS: 80053; 81001; 85027; 85610; 85730; 87070; 93005

== ENCOUNTER → 2021-11-19 | Outpatient (CLI) | payer MEDICARE, BC ==
--- NOTE | 2021-11-19 12:59 | CT ---
EXAMINATION TYPE: CT left knee - [facility] Protocol DATE OF EXAM: 11/19/2021 INDICATION: Pain Lt Knee CT DLP: 441.60 mGy.cm Automated Exposure Control for Dose Reduction was Utilized. TECHNIQUE AND CONTRAST: CT scan of the left knee is performed without IV contrast administration as per them [facility] protocol. COMPARISON: MRI dated 05/01/2020 FINDINGS: Moderate to marked degenerative changes of the left knee joint with mild narrowing of the medial tibi ofemoral compartment, tibiofemoral osteophytosis, sharp tibial spines, medial tibiofemoral subchondra l sclerotic changes and small patellofemoral osteophytosis. Enthesophytes of the patellar attachment of the quadriceps tendon. No definite acute fracture line id entified. No patellar dislocation or significant subluxation. Small knee joint effusion. Diverticulosis of the visualized portion of the colon. Grossly unremarkable hip joints. Sharp inferio r calcaneus spur, seen bilaterally. IMPRESSION: Degenerative changes of the left knee joint and other incidental findings as described above.
== END | disposition home or self-care (01) ==
LOC: RADCTMAIN 10:24
PROVIDERS: ATTEND Orthopaedic Surgery
DX: M17.12 Unilateral primary osteoarthritis, left knee (principal)

== ENCOUNTER 2021-12-12 11:18 | Day surgery (SDC) | payer MEDICARE, BC ==
[2021-12-11 10:25] VITALS: BMI 26.7
[~2021-12-12 11:18] MED LIST changes: +ACETAMINOPHEN TAB 500 MG TAB PO PRN; +DEXAMETHASONE SOD PHOSPHATE 10 MG/ML 1 ML VIAL IV PRN; +DOCUSATE 100 MG CAP PO PRN; +FAMOTIDINE 20 MG/2 ML VIAL IVP PRN; +KETOROLAC 15 MG/ML 1 ML VIAL IVP PRN; -LACTATED RINGERS 1,000 ML IV SCH; +ONDANSETRON 4 MG/2 ML VIAL IVP PRN; +TRANEXAMIC ACID IN NACL,ISO-OS 1,000 MG in SALINE 1 100ML.BAG IVPB PRN; +oxyCODONE ER 10 MG TAB.ER.12H PO PRN
[2021-12-12] MEDS: LACTATED RINGERS 1,000 ML IV SCH ×2 (11:25→18:21)
[2021-12-12] MEDS ORDERED: MIDAZOLAM 2 MG/2 ML VIAL IVP ONE (12:22)
--- NOTE | 2021-12-12 13:06 | P.ANPRN ---
Procedure Note - Anesthesia - Nerve Block Performed Left Adductor Canal Single Time Out Performed: Yes Date of Procedure: 11/11/21 Procedure Start Time: 12: Procedure Stop Time: : Location of Patient: PreOp Indication: Acute Post-Operative Pain, Requested by Surgeon Sedation Type: Sedate with meaningful contact maintained Preparation: Sterile Prep Position: Supine Needle Types: Pajunk Needle Gauge: 21 Ultrasound used to visualize needle placement: Yes Ultrasound used to observe medication spread: Yes Blood Aspirated: No Pain Paresthesia on Injection Noted: No Resistance on Injection: Normal Image Stored and Saved: Yes Events: Uneventful and Well Tolerated (ropi .5% 20cc plus dexamethasone 4mg)
--- NOTE | 2021-12-12 13:07 | P.ANPRN ---
Procedure Note - Anesthesia - Nerve Block Performed Left iPack Single Time Out Performed: Yes Date of Procedure: 11/11/21 Procedure Start Time: 12: Procedure Stop Time: : Location of Patient: PreOp Indication: Acute Post-Operative Pain, Requested by Surgeon Sedation Type: Sedate with meaningful contact maintained Preparation: Sterile Prep Position: Supine Needle Types: Pajunk Needle Gauge: 21 Ultrasound used to visualize needle placement: Yes Ultrasound used to observe medication spread: Yes Blood Aspirated: No Pain Paresthesia on Injection Noted: No Resistance on Injection: Normal (ropi .5% 20cc plus dexamethasone 4mg) Image Stored and Saved: Yes Events: Uneventful and Well Tolerated
[2021-12-12] MEDS ORDERED: LIDOCAINE 2% INJ 20 MG/ML (2 ML VIAL) ONE (13:15)
[2021-12-12] MEDS ORDERED: DEXAMETHASONE SOD PHOSPHATE 4 MG/ML 1 ML VIAL ONE (13:15)
[2021-12-12] MEDS ORDERED: MIDAZOLAM 2 MG/2 ML VIAL ONE (13:15)
[2021-12-12] MEDS ORDERED: PROPOFOL 10 MG/ML 20 ML VIAL IV ONE (13:15)
[2021-12-12] MEDS ORDERED: TRANEXAMIC ACID IN NACL,ISO-OS 1,000 MG/100 ML BAG ONE (13:15)
[2021-12-12] MEDS ORDERED: ePHEDrine 50 MG/ML 1 ML VIAL ONE (13:15)
[2021-12-12] MEDS ORDERED: ROPIVACAINE 5 MG/ML 30 ML VIAL ONE (13:15)
[2021-12-12] MEDS ORDERED: TRANEXAMIC ACID IN NACL,ISO-OS 1,000 MG in SALINE 1 100ML.BAG IVPB PRN (13:38)
[2021-12-12] MEDS: ROPIVACAINE/EPI/CLONIDINE/KET 50 ML SYRINGE MISCELLANE PRN ×2 (13:56→14:50)
[2021-12-12] MEDS ORDERED: LACTATED RINGERS 1,000 ML IV ONE (14:00)
[2021-12-12] MEDS ORDERED: NALOXONE 0.4 MG/ML 1 ML VIAL IV PRN (15:38)
[2021-12-12] MEDS ORDERED: ONDANSETRON 4 MG/2 ML VIAL IVP PRN (15:38)
[2021-12-12] MEDS ORDERED: HYDROmorphone 0.5 MG/0.5 ML SYRINGE IVP PRN ×3 (15:38)
[2021-12-12] MEDS ORDERED: HYDROcodone/APAP 5-325MG 1 EACH TAB PO PRN ×2 (15:38)
--- NOTE | 2021-12-12 15:41 | P.OP ---
Date of Procedure: 12/12/21 Preoperative Diagnosis: 1. Severe left knee osteoarthritis 2. Prior nephrectomy with chronic renal insufficiency Postoperative Diagnosis: Same Procedure(s) Performed: Left total knee arthroplasty Implants: 1. [place] [employer] CR Femur Size #4 2. [place] [employer] [place] Tibial Base Size #3 3. [employer] CS poly Size #3, 9-mm 4. [place] [employer] all poly patella, Size #29 Anesthesia: regional, spinal Surgeon: Luther Bartholomew Tele Marketing Executive #1: Sang Ferreira Estimated Blood Loss (ml): 200 IV fluids (ml): 1,300 Pathology: none sent Condition: stable Disposition: PACU Indications for Procedure: I met with the patient preoperatively in the office setting and discussed treatment of their symptomatic knee arthritis. She failed a long course of nonsurgical treatment and elected to proceed with an elective total knee replacement. I discussed the potential risks and complications at length and gave them ample time to ask questions. Risks discussed included: risks from anesthesia, superficial site surgical infection, acute and/or chronic periprosthetic joint infection, delayed wound healing, drainage, wound necrosis, instability, stiffness, stiffness requiring manipulation and/or revision surgery, damage to local blood vessels or nerves, aseptic loosening of the implants, extensor mechanism issues including disruption, patellar maltracking, avascular necrosis etc., continued or worsened knee pain, generalized dissatisfaction with surgical outcome, need for revision surgery, an inability to regain preinjury level of function, DVT, PE, other medical complications, and possibly loss of life or limb. The patient voiced their understanding that while these are the most common complications other less common complications are possible. They provided both their verbal and written consent to go forward with surgery. Operative Findings: There was severe full-thickness cartilage loss in the medial and fell femoral compartments with complete cartilage loss on the distal medial femoral condyle and posterior surface of the patella. There was moderate cartilage loss on the lateral femoral condyle and tibial plateau. Description of Procedure: The patient was identified in preoperative holding and the correct operative extremity was verified and marked with a marker. I reviewed the consent form with the patient at length. All of their questions were answered. The patient was given a block by anesthesia. They were then brought back to the operating room. They were transferred onto the operating room table where a general anesthetic, preoperative antibiotics, and tranexamic acid were administered by anesthesia. A tourniquet was applied to the proximal aspect of the operative extremity. The contralateral extremity was padded under the heel and secured to the operating room table with a nonsterile blue towel and tape. The ipsilateral arm was carefully draped across the patient's chest and secured with a pillow and foam. A post was applied over the lateral aspect of the ipsilateral thigh and a bolster was placed under the ipsilateral foot. I verified that the operative extremity was stable and the knee was flexed to 90. The operative extremity was then placed in a leg urrutia, nonsterile drapes were applied, and the extremity was prepped and draped sterilely in the standard sterile fashion. Prior to starting surgery timeout was performed identifying the correct patient, operative extremity, and procedure. The leg was then elevated, exsanguinated with an Esmarch bandage, and the tourniquet was inflated. An anterior midline incision was made sharply with a scalpel. Once I had dissected deep to the superficial fascial layer medial and lateral flaps were elevated. A medial parapatellar arthrotomy was created. Upon opening the knee joint there were diffuse arthritic changes in all 3 compartments. The anterior horn of the medial meniscus were sharply released and a medial release was performed around the posterior medial corner of the knee to facilitate retractor placement. The fat pad was excised with electrocautery. The patella was found to be severely arthritic and a provisional cut was made with a sagittal saw to facilitate mobilization of the extensor mechanism during the procedure. Remnants of the ACL and PCL were then excised from the notch. 4 mm pins were then placed within the incision in the medial distal femur and proximal tibia. Arrays were applied to the pins and I verified they were completely tightened. The knee was then registered with the Telerik robot and manipulations in implant position were made to balance the knee and opitmize implant position. Using the Telerik robotic saw all cuts were made in accordance with our plan. After all bony fragments had been removed the cuts were verified with the planar probe. The tibia was then subluxed forward and sized. The knee was brought into flexion and a lamina ferry hand was placed to allow removal of the meniscal remnants both medially and laterally as well as posterior osteophytes. Local anesthetic was then infiltrated around the joint capsule. Trial implants were then placed within the knee. Range of motion and collateral ligament tension was then evaluated. Adjustments in implant size and position were then made accordingly. Once the knee was felt to be appropriately balanced the Trent pins were removed. The patella was then recut, sized, and punched. A trial patellar button was then placed. With the trial components in place, the patella tracked midline. The femur was then drilled and the trial component removed. The trial tibial component was then appropriately rotated, pinned, and prepared for the keel. All trial components were then removed from the knee. The knee was thoroughly irrigated with pulsatile lavage. Cement was prepared via vacuum mixing in a bowl on the back table. I then hand pressurized cement into the femur and tibia and placed the implants beginning with the tibial base tray and poly liner, femoral component, and finally the patellar button. All extruded cement was removed including from the pin sites. Once the cement had hardened the knee was evaluated one final time with the final polyethylene liner in place. The knee had full extension and flexion and felt stable to varus and valgus stress throughout the arc of motion. The tourniquet was released and with the tourniquet down the patella tracked midline. All bleeders were controlled with electrocautery. The knee was then soaked for 3 minutes with a dilute Betadine soak. The knee was thoroughly irrigated using 3 L of sterile saline and pulsatile lavage. A deep drain was placed. The extensor mechanism was then reapproximated using pop off Vicryl sutures followed by a running barbed suture. The knee was then closed in layers with a 0 strata fix for the deep fascial layer, 2-0 strata fix for the superficial subcutaneous layer and Monocryl and Steri-Strips for the skin. A sterile dressing and drain sponge were applied. I verified that all instrument, sponge, and sharp counts were correct. The patient was then transferred off the operating room table, extubated, and brought to recovery having tolerated the procedure well. Sang Ferreira PA-C was required as a skilled timber management assistant due to the complexity of the procedure for patient positioning, draping, retraction, placement of hardware, and closure of wound. PLAN: The patient can weight-bear as tolerated on the operative extremity. DVT prophylaxis with aspirin 81 mg twice a day based on preoperative risk stratification. Follow-up in the office in 2 weeks for wound check and x-rays of the knee including an AP and lateral. Due to her prior nephrectomy we will hold all NSAIDs. We will check a BMP in the morning to monitor her kidney function.
[2021-12-12] MEDS: ASPIRIN 81 MG PO SCH (22:41)
[2021-12-12] MEDS: carvediloL 6.25 MG TAB PO SCH (22:42)
[2021-12-13] MEDS: LACTATED RINGERS 1,000 ML IV SCH ×2 (04:49→06:05)
[2021-12-13 07:24] LABS: ALT 19 U/L (4-34); AST 23 U/L (14-36); African American GFR (CKD) 51 (>60 ml/min/1.73 sqM); Albumin 4.1 g/dL (3.5-5.0); Albumin/Globulin Ratio 2.2; Alkaline Phosphatase 60 U/L (38-126); Anion Gap 8 mmol/L; Blood Urea Nitrogen 20 mg/dL (7-17); Calcium 9.2 mg/dL (8.4-10.2); Carbon Dioxide 28 mmol/L (22-30); Chloride 102 mmol/L (98-107); Globulin 1.9 g/dL; Glucose 97 mg/dL (74-99); Non-African American GFR(CKD) 45 (>60 ml/min/1.73 sqM); Potassium 4.4 mmol/L (3.5-5.1); Sodium 138 mmol/L (137-145); Total Bilirubin 0.8 mg/dL (0.2-1.3)
[2021-12-13] MEDS: carvediloL 6.25 MG TAB PO SCH (07:35)
[2021-12-13] MEDS: ASPIRIN 81 MG PO SCH (07:35)
[2021-12-13 07:51] VITALS: BP 131/76; PULSE 58; RESP 16; TEMP 97.3
--- NOTE | 2021-12-13 08:40 | P.DS ---
Providers Expected date of discharge: 12/13/21 Attending physician: Luther Bartholomew Consults: 12/12/21 15:38 Consult Physician Routine Consulting Provider: Tarik Mcnamara Consult Reason/Comments: medical management Do you want consulting provider notified?: Yes Primary care physician: Boni Calderon [place] [facility] Course: This is a 66-year-old female who has been followed in our office by Dr. Bartholomew for continued complaints of left knee pain due to left knee osteoarthritis. Treatment options were discussed, and patient elected to undergo a left total knee arthroplasty. Patient was seen pre-operatively by Dr. Calderon and cleared for surgery. Patient underwent a left total knee arthroplasty on 12/12/[address] Bartholomew. The procedure was performed without complication or sequelae. The patient is doing fairly well postoperatively. Vital signs and labs are stable on postoperative day #1. Patient was examined bedside today with Dr. Bartholomew. Patient states she is overall doing very well and the pain in her left knee is well-controlled. She has been ambulating with a walker with minimal assistance. She is currently up to the bedside chair. Patient would like to be discharged home today. On examination, the patient is sitting up in the bedside chair in no apparent distress. She is alert and orientated 3. On inspection of the left knee, there is a clean, dry, intact Opsite dressing in place. There is no bleeding or drainage to the dressing. Patient has good strength and ROM of the left ankle and toes. Motor and sensory function is intact of the left lower extremity. The left lower extremity is warm and well perfused. Patient is discharged home today in good condition, pending medical clearance. Patient will follow-up with Dr. Bartholomew in the office in 2 weeks. Please see med rec for accurate list of discharge medication. Plan - Discharge Summary Discharge Rx Participant: No New Discharge Prescriptions: New Aspirin 81 mg PO BID 30 Days #60 tab Docusate [Colace] 100 mg PO BID #60 capsule HYDROcodone/APAP 5-325MG [[place] 5-325] 1 tab PO Q6HR PRN 7 Days #28 tab PRN Reason: Pain Omeprazole 40 mg PO DAILY 30 Days #30 cap No Action Aspirin 81 mg PO DAILY hydroCHLOROthiazide [Hydrodiuril] 12.5 mg PO Q48H PRN PRN Reason: Blood Pressure Multivitamins, Thera [Multivitamin (formulary)] 1 tab PO DAILY Cholecalciferol [Vitamin D3] 1,000 unit PO DAILY carvediloL [Coreg] 6.25 mg PO BID Rosuvastatin [Crestor] 10 mg PO HS L.acidoph,Paracasei, B.lactis [Probiotic] 1 each PO DAILY Acetaminophen [Tylenol Extra Strength] 500 mg PO BID PRN PRN Reason: DAILY Discharge Medication List Aspirin 81 mg PO DAILY 03/09/14 [History] hydroCHLOROthiazide [Hydrodiuril] 12.5 mg PO Q48H PRN 03/09/14 [History] Cholecalciferol [Vitamin D3] 1,000 unit PO DAILY 05/09/17 [History] Multivitamins, Thera [Multivitamin (formulary)] 1 tab PO DAILY 05/09/17 [History] carvediloL [Coreg] 6.25 mg PO BID 05/09/17 [History] Rosuvastatin [Crestor] 10 mg PO HS 05/23/20 [History] Acetaminophen [Tylenol Extra Strength] 500 mg PO BID PRN 12/11/21 [History] L.acidoph,Paracasei, B.lactis [Probiotic] 1 each PO DAILY 12/11/21 [History] Aspirin 81 mg PO BID 30 Days #60 tab 12/13/21 [Rx] Docusate [Colace] 100 mg PO BID #60 capsule 12/13/21 [Rx] HYDROcodone/APAP 5-325MG [[place] 5-325] 1 tab PO Q6HR PRN 7 Days #28 tab 12/13/21 [Rx] Omeprazole 40 mg PO DAILY 30 Days #30 cap 12/13/21 [Rx] Follow up Appointment(s)/Referral(s): Luther Bartholomew MD [Medical Doctor] - 2 Weeks Activity/Diet/Wound Care/Special Instructions: Weight-bear to tolerance on operative extremity with a walker. Keep operative dressing intact until follow-up appointment in the office. Call the office if dressing becomes saturated or falls off. May shower over dressing. Take pain medications as needed. Take aspirin 81 mg twice a day 4 weeks for blood clot prevention. Follow-up in the office in [address] Bartholomew. Call the office with any questions or concerns, Discharge Disposition: HOME WITH HOME HEALTH SERVICES
--- NOTE | 2021-12-13 12:28 | XR ---
EXAMINATION TYPE: XR knee limited LT DATE OF EXAM: 12/12/2021 CLINICAL HISTORY: Left knee pain and arthritis status post total knee replacement. TECHNIQUE: Portable AP and crosstable lateral views of the left knee are obtained immediately postop eratively. COMPARISON: None FINDINGS: Metallic hardware from total left knee arthroplasty is seen and appears satisfactory in al ignment and position. There is evidence of recent surgery with diffuse subcutaneous gas and soft ti ssue swelling noted. IMPRESSION: METALLIC HARDWARE FROM TOTAL LEFT KNEE ARTHROPLASTY IS SATISFACTORY IN ALIGNMENT.
[2021-12-13 13:00] LABS: Basophils # (A) 0.02 X 10*3/uL (0.00-0.10); Basophils % (A) 0.1 %; Eosinophils # (A) 0 X 10*3/uL (0.04-0.35); Eosinophils % (A) 0 %; HCT 35.4 % (37.2-46.3); Immature Grans, Automated 0.6 %; Lymphocytes # (A) 1.44 X 10*3/uL (0.90-5.00); Lymphocytes % (A) 8.8 %; MCH 31.6 pg (27.0-32.0); MCHC 33.9 g/dL (32.0-37.0); MCV 93.2 fL (80.0-97.0); Mean Platelet Volume 13.5 fL (9.5-12.2); Monocytes # (A) 1.38 X 10*3/uL (0.20-1.00); Monocytes % (A) 8.4 %; NRBC Per 100 WBC 0 /100 WBCS (0.0-0.0); Neutrophils # (A) 13.51 X 10*3/uL (1.80-7.70); Neutrophils % (A) 82.1 %; Platelet Count 149 X 10*3/uL (140-440); RDW 12.8 % (11.5-14.5); WBC 16.45 X 10*3/uL (4.50-10.00)
--- NOTE | 2021-12-13 23:14 | P.CONS ---
History of Present Illness - History of Present Illness This is a pleasant 66 years old female with past medical history of hypertens ion, hyperlipidemia, renal cancer status post nephrectomy and chronic kidney disease. Admitted for left total knee arthroplasty. Today is postop day #1. Patient is afebrile and hemodynamically stable. She denies any other symptoms, no chest pain or dyspnea. No vomiting or diarrhea. No urinary complaints. No headache or weakness or numbness. No dizziness. looks stable as well. She has mildly elevated WBC 16.4. Patient has no signs of infection, no fever and antibiotics not indicated at this level. Mild leukocytosis is expected postoperatively. Patient will need to keep monitoring her WBC with her PCP and orthopedic team, patient informed and she agrees. Creatinine 1.2 actually is improved from before 1.3-1.4 as she has CK D. Review of Systems Review of systems CONSTITUTIONAL: No fever, no malaise, no fatigue. HEENT: No recent visual problems or hearing problems. Denied any sore throat. CARDIOVASCULAR: No orthopnea, PND, no palpitations, no syncope. PULMONARY: No shortness of breath, no cough, no hemoptysis. GASTROINTESTINAL: No diarrhea, no nausea, no vomiting, no abdominal pain. Normoactive bowel sounds. NEUROLOGICAL: No headaches, no weakness, no numbness. HEMATOLOGICAL: Denies any bleeding or petechiae. GENITOURINARY: Denies any burning micturition, frequency, or urgency. MUSCULOSKELETAL/RHEUMATOLOGICAL: Denies any joint pain, swelling, or any muscle pain. ENDOCRINE: Denies any polyuria or polydipsia. Past Medical History Past Medical History: Cancer, Hyperlipidemia, Hypertension, Renal Disease Additional Past Medical History / Comment(s): RENAL CARCINOMA, ENVIRONMENTAL ALLERGIES, CHRONIC KIDNEY DISEASE, diverticulitis History of Any Multi-Drug Resistant Organisms: None Reported Past Surgical History: Hysterectomy, Tubal Ligation Additional Past Surgical History / Comment(s): LEFT Nephrectomy, Left TKA, Meniscus tear in left knee. Past Anesthesia/Blood Transfusion Reactions: No Reported Reaction Past Psychological History: No Psychological Hx Reported Smoking Status: Never smoker Past Alcohol Use History: Occasional Past Drug Use History: None Reported - Past Family History Mother Family Medical History: No Reported History Daughter(s) Family Medical History: Cancer Additional Family Medical History / Comment(s): COLON CANCER Medications and Allergies Home Medications Medication Instructions Recorded Confirmed Type Aspirin 81 mg PO DAILY 03/09/14 12/11/21 History hydroCHLOROthiazide [Hydrodiuril] 12.5 mg PO Q48H PRN 03/09/14 12/11/21 History Cholecalciferol [Vitamin D3 (25 1,000 unit PO DAILY 05/09/17 12/11/21 History Mcg = 1000 Iu)] carvediloL [Coreg] 6.25 mg PO BID 05/09/17 12/12/21 History Rosuvastatin [Crestor] 10 mg PO HS 05/23/20 12/11/21 History Acetaminophen [Tylenol Extra 500 mg PO BID PRN 12/11/21 12/11/21 History Strength] L.acidoph,Paracasei, B.lactis 1 each PO DAILY 12/11/21 12/11/21 History [Probiotic] Aspirin 81 mg PO BID 30 Days #60 tab 12/13/21 Rx Docusate [Colace] 100 mg PO BID #60 capsule 12/13/21 Rx HYDROcodone/APAP 5-325MG [[place] 1 tab PO Q6HR PRN 7 Days #28 tab 12/13/21 Rx 5-325] Omeprazole 40 mg PO DAILY 30 Days #30 cap 12/13/21 Rx Allergies Allergy/AdvReac Type Severity Reaction Status Date / Time No Known Allergies Allergy Verified 12/11/21 09:43 Physical Exam Vitals: Vital Signs Temp Pulse Resp BP Pulse Ox 12/13/21 07:49 97.3 F L 58 L 16 131/76 97 12/13/21 02:15 97.9 F 56 L 18 131/75 93 L GENERAL: The patient is alert and oriented x3, not in any acute distress. Well developed, well nourished. HEENT: Pupils are round and equally reacting to light. EOMI. No scleral icterus. No conjunctival pallor. Normocephalic, atraumatic. No pharyngeal erythema. No thyromegaly. CARDIOVASCULAR: S1 and S2 present. No murmurs, rubs, or gallops. PULMONARY: Chest is clear to auscultation, no wheezing or crackles. ABDOMEN: Soft, nontender, nondistended, normoactive bowel sounds. No palpable organomegaly. MUSCULOSKELETAL: No joint swelling or deformity. -EXTREMITIES: No cyanosis, clubbing, or pedal edema. Left knee wound with dressing a Place. Rest of exam is deferred to surgery team NEUROLOGICAL: Gross neurological examination did not reveal any focal deficits. SKIN: No rashes. no petechiae. Results CBC & Chem 7: 12/13/21 06:07 12/13/21 06:07 Labs: Abnormal Lab Results - Last 24 Hours (Table) 12/13/21 12/13/21 Range/Units 06:07 06:07 WBC 16.45 H (4.50-10.00) X 10*3/uL RBC 3.80 L (4.10-5.20) X 10*6/uL Hct 35.4 L (37.2-46.3) % MPV 13.5 H (9.5-12.2) fL Immature Gran # 0.10 H (0.00-0.04) X 10*3/uL Neutrophils # 13.51 H (1.80-7.70) X 10*3/uL Monocytes # 1.38 H (0.20-1.00) X 10*3/uL Eosinophils # 0 L (0.04-0.35) X 10*3/uL BUN 20 H (7-17) mg/dL Creatinine 1.26 H (0.52-1.04) mg/dL Total Protein 6.0 L (6.3-8.2) g/dL Assessment and Plan Assessment: -Severe osteoarthritis status post left TKA. Today is postoperative day #1 -Hypertension, continue same medication -Hyperlipidemia: Continue with same treatment -Chronic kidney disease, stable creatinine, follow-up as an outpatient -Mild leukocytosis, mostly reactive. No signs of infection. No need for antibiotics. Keep monitoring WBC Continue with pain management and DVT prophylaxis as per primary team Patient is medically stable Thank you for consulting us Patient was instructed to follow up with PCP in one week after discharge and she verbalized understanding and acceptance
== END 2021-12-13 10:20 | disposition home health service (06) ==
LOC: OR 11:18 → 4SSUR 15:23 → OR 12-13 10:20
PROVIDERS: ATTEND Orthopaedic Surgery
DX: M17.12 Unilateral primary osteoarthritis, left knee (principal); M25.762 Osteophyte, left knee; M25.562 Pain in left knee; G89.18 Other acute postprocedural pain; N18.9 Chronic kidney disease, unspecified; I12.9 Hypertensive chronic kidney disease with stage 1 through stage 4 chronic kidney disease, or unspecified chronic kidney disease; I82.409 Acute embolism and thrombosis of unspecified deep veins of unspecified lower extremity; K57.92 Diverticulitis of intestine, part unspecified, without perforation or abscess without bleeding; Z90.5 Acquired absence of kidney; E78.5 Hyperlipidemia, unspecified; Z79.899 Other long term (current) drug therapy; Z90.710 Acquired absence of both cervix and uterus; Z89.529 Acquired absence of unspecified knee; Z82.49 Family history of ischemic heart disease and other diseases of the circulatory system
CPT/HCPCS: 27447; 20985; 97162; 64447; 64445; 76942; 80053; 85025; 73560; C1776; C1713; J2250; J1100 ×2; J0690 ×2; J2405; J2795; J1885; J2704; J2001

== ENCOUNTER → 2021-12-24 | Outpatient (CLI) | payer MEDICARE, BC ==
[2021-12-24 18:02] LABS: Basophils # (A) 0.02 X 10*3/uL (0.00-0.10); Basophils % (A) 0.2 %; Eosinophils # (A) 0.15 X 10*3/uL (0.04-0.35); Eosinophils % (A) 1.5 %; HGB 11.2 g/dL (12.0-15.0); Immature Grans, Automated 0.4 %; Lymphocytes # (A) 2.09 X 10*3/uL (0.90-5.00); Lymphocytes % (A) 20.5 %; MCH 31.5 pg (27.0-32.0); MCHC 32.9 g/dL (32.0-37.0); MCV 95.5 fL (80.0-97.0); Mean Platelet Volume 11.6 fL (9.5-12.2); Monocytes # (A) 0.69 X 10*3/uL (0.20-1.00); Monocytes % (A) 6.8 %; NRBC Per 100 WBC 0 /100 WBCS (0.0-0.0); Neutrophils # (A) 7.21 X 10*3/uL (1.80-7.70); Neutrophils % (A) 70.6 %; Platelet Count 274 X 10*3/uL (140-440); RBC 3.56 X 10*6/uL (4.10-5.20)
[2021-12-24 18:55] LABS: African American GFR (CKD) 45.3 (60.0-200.0); Albumin 4.4 g/dL (3.8-4.9); Albumin/Globulin Ratio 1.72 (1.60-3.17); Anion Gap 13.3 mmol/L (10.00-18.00); BUN/Creat Ratio 18.36 Ratio (12.00-20.00); Blood Urea Nitrogen 25.7 mg/dL (9.0-27.0); Calcium 9.5 mg/dL (8.7-10.3); Carbon Dioxide 25.3 mmol/L (20.0-27.5); Globulin 2.6 g/dL (1.6-3.3); Non-African American GFR(CKD) 39.1 (60.0-200.0); Potassium 4.1 mmol/L (3.5-5.5); Total Bilirubin 0.9 mg/dL (0.30-1.20)
== END | disposition home or self-care (01) ==
LOC: LABWHC1 12:51
PROVIDERS: ATTEND Internal Medicine Geriatric Medicine
DX: N18.9 Chronic kidney disease, unspecified (principal); D63.1 Anemia in chronic kidney disease
CPT/HCPCS: 36415; 80053; 85025

== ENCOUNTER 2022-02-19 16:01 | Emergency (ER) | payer MEDICARE, BC ==
[2022-02-19 16:05] VITALS: TEMP 97.8
[2022-02-19] MEDS ORDERED: diphenhydrAMINE 25 MG CAP PO STA (16:28)
[2022-02-19] MEDS ORDERED: FAMOTIDINE 20 MG TAB PO STA (16:28)
[2022-02-19] MEDS ORDERED: dexAMETHasone 2 MG TAB PO STA (16:28)
--- NOTE | 2022-02-19 17:29 | ED ---
Allergic Reaction HPI - General Chief complaint: Allergic Reaction Stated complaint: Poss allergic reaction Time Seen by Provider: 02/19/22 16:13 Source: patient Mode of arrival: ambulatory Limitations: no limitations - History of Present Illness Initial Comments: Patient complains of an ALLERGIC reaction. She has a rash on her arms and legs. She took a large dose of amoxicillin recently because she was having surgery. She has no tongue or lip swelling. She has no shortness of breath or wheezing. She has no chest pain or pressure or tightness. She has no nausea or vomiting. She took Benadryl for her symptoms prior to arrival. - Related Data Home Medications Medication Instructions Recorded Confirmed Aspirin 81 mg PO DAILY 03/09/14 12/11/21 hydroCHLOROthiazide [Hydrodiuril] 12.5 mg PO Q48H PRN 03/09/14 12/11/21 Cholecalciferol [Vitamin D3 (25 1,000 unit PO DAILY 05/09/17 12/11/21 Mcg = 1000 Iu)] carvediloL [Coreg] 6.25 mg PO BID 05/09/17 12/12/21 Rosuvastatin [Crestor] 10 mg PO HS 05/23/20 12/11/21 Acetaminophen [Tylenol Extra 500 mg PO BID PRN 12/11/21 12/11/21 Strength] L.acidoph,Paracasei, B.lactis 1 each PO DAILY 12/11/21 12/11/21 [Probiotic] Previous Rx's Medication Instructions Recorded Aspirin 81 mg PO BID 30 Days #60 tab 12/13/21 Docusate [Colace] 100 mg PO BID #60 capsule 12/13/21 HYDROcodone/APAP 5-325MG [[place] 1 tab PO Q6HR PRN 7 Days #28 tab 12/13/21 5-325] Omeprazole 40 mg PO DAILY 30 Days #30 cap 12/13/21 Allergies Allergy/AdvReac Type Severity Reaction Status Date / Time No Known Allergies Allergy Verified 02/19/22 16:05 Review of Systems ROS Statement: Those systems with pertinent positive or pertinent negative responses have been documented in the HPI. ROS Other: All systems not noted in ROS Statement are negative. Past Medical History Past Medical History: Cancer, Hypertension, Renal Disease Additional Past Medical History / Comment(s): RENAL CARCINOMA, ENVIRONMENTAL ALLERGIES, CHRONIC KIDNEY DISEASE, diverticulitis History of Any Multi-Drug Resistant Organisms: None Reported Past Surgical History: Hysterectomy, Tubal Ligation Additional Past Surgical History / Comment(s): LEFT Nephrectomy, Left TKA, Meniscus tear in left knee. Past Anesthesia/Blood Transfusion Reactions: No Reported Reaction Past Psychological History: No Psychological Hx Reported Smoking Status: Never smoker Past Alcohol Use History: Occasional Past Drug Use History: None Reported - Past Family History Mother Family Medical History: No Reported History Daughter(s) Family Medical History: Cancer Additional Family Medical History / Comment(s): COLON CANCER General Exam Limitations: no limitations General appearance: alert, in no apparent distress Course Vital Signs 02/19/22 16:02 Temperature 97.8 F Pulse Rate 77 Respiratory 20 Rate Blood Pressure 165/83 O2 Sat by Pulse 99 Oximetry Medical Decision Making - Medical Decision Making Patient presents with what appears to be a fixed drug reaction. She has no airway involvement. I ordered the patient Benadryl Decadron and Pepcid by mouth. She is feeling better. There is no evidence of anaphylaxis. She is not taking any more of the medication that we believe she is ALLERGIC to. She is stable for discharge. Disposition Clinical Impression: Allergic reaction Disposition: HOME SELF-CARE Condition: Good Instructions (If sedation given, give patient instructions): Acute Rash (ED) Is patient prescribed a controlled substance at d/c from ED?: No Referrals: Boni Calderon MD [Primary Care Provider] - 1-2 days
[2022-02-19 17:37] VITALS: BP 124/68; PULSE 72; RESP 16
== END 2022-02-19 17:37 | disposition home or self-care (01) ==
LOC: EC 16:01
DX: R21 Rash and other nonspecific skin eruption (principal); T36.0X5A Adverse effect of penicillins, initial encounter; I12.9 Hypertensive chronic kidney disease with stage 1 through stage 4 chronic kidney disease, or unspecified chronic kidney disease; N18.9 Chronic kidney disease, unspecified; Z79.82 Long term (current) use of aspirin
CPT/HCPCS: 99282 ×2; J8540

== ENCOUNTER → 2022-02-21 | Outpatient (CLI) | payer MEDICARE, BC ==
[2022-02-21 14:58] LABS: Basophils # (A) 0.01 X 10*3/uL (0.00-0.10); Basophils % (A) 0.1 %; Eosinophils # (A) 0 X 10*3/uL (0.04-0.35); Eosinophils % (A) 0 %; HCT 38.7 % (37.2-46.3); HGB 12.7 g/dL (12.0-15.0); Immature Grans, Automated 0.5 %; Lymphocytes # (A) 1.21 X 10*3/uL (0.90-5.00); Lymphocytes % (A) 10.3 %; MCH 30.3 pg (27.0-32.0); MCHC 32.8 g/dL (32.0-37.0); MCV 92.4 fL (80.0-97.0); Mean Platelet Volume 12.8 fL (9.5-12.2); Monocytes # (A) 1.04 X 10*3/uL (0.20-1.00); Monocytes % (A) 8.8 %; NRBC Per 100 WBC 0 /100 WBCS (0.0-0.0); Neutrophils # (A) 9.47 X 10*3/uL (1.80-7.70); Neutrophils % (A) 80.3 %; Platelet Count 157 X 10*3/uL (140-440); RBC 4.19 X 10*6/uL (4.10-5.20); WBC 11.79 X 10*3/uL (4.50-10.00)
[2022-02-21 15:08] LABS: African American GFR (CKD) 49.2 (60.0-200.0); Albumin 4.8 g/dL (3.8-4.9); Anion Gap 11.3 mmol/L (10.00-18.00); BUN/Creat Ratio 20.15 Ratio (12.00-20.00); Blood Urea Nitrogen 26.2 mg/dL (9.0-27.0); Calcium 9.9 mg/dL (8.7-10.3); Carbon Dioxide 26.7 mmol/L (20.0-27.5); Globulin 2.4 g/dL (1.6-3.3); Non-African American GFR(CKD) 42.4 (60.0-200.0); Potassium 4.3 mmol/L (3.5-5.5); Total Bilirubin 0.6 mg/dL (0.30-1.20); Total Protein 7.2 g/dL (6.2-8.2)
== END | disposition home or self-care (01) ==
LOC: LABWHC1 10:00
PROVIDERS: ATTEND Internal Medicine Geriatric Medicine
DX: R21 Rash and other nonspecific skin eruption (principal)
CPT/HCPCS: 36415; 80053; 85025

== ENCOUNTER → 2022-07-18 | Outpatient (CLI) | payer MEDICARE, BC ==
--- NOTE | 2022-07-18 09:30 | USB ---
Reason for Exam: Clinical finding. Patient History: Menarche at age 11. First Full-Term at age 17. Hysterectomy at age 43. Postmenopausal. Other cancer, age 61. Estrogen for 3 years, 1 month. Patient used Hormonal Contraceptives for 2 years. Excisional Biopsy on the Left side. 11/07/1997, Benign Cyst Aspiration on the left side. Risk Values: Perri 5 year model risk: 1.6%. NCI Lifetime model risk: 5.4%. Technique: Method: Targeted. Prior Study Comparison: 01/11/2021 Left Diagnostic Mammogram, [facility]. 06/15/2021 Bilateral Diagnostic Mammogram, [facility]. 06/17/2022 Bilateral MG 3D screening mammo w/cad, [facility]. Findings: The lateral section of the breast of the left breast, the axilla of the left breast and the retroareolar of the left breast were scanned. There is a simple-appearing cysts in the left breast 7:00 position 1 cm from the nipple measuring 2.4 x 2.0 x 2.2 cm.. Overall Assessment: Benign, BI-RAD 2 Management: Screening Mammogram of both breasts in 11 months. A clinical breast exam by your physician is recommended on an annual basis and results should be correlated with mammographic findings. This exam should not preclude additional follow-up of suspicious palpable abnormalities. Results were given to the patient verbally at the time of exam. Electronically signed and approved by: Eric Woodard D.O. Radiologis
== END | disposition home or self-care (01) ==
LOC: RADUSWWP 08:52
PROVIDERS: ATTEND Internal Medicine Geriatric Medicine
DX: N60.02 Solitary cyst of left breast (principal); Z78.0 Asymptomatic menopausal state

== ENCOUNTER → 2022-08-01 | Day surgery (SDC) | payer MEDICARE, BC ==
--- NOTE | 2022-08-05 10:02 | USB ---
Risk Values: Perri 5 year model risk: 1.6%. NCI Lifetime model risk: 5.4%. Prior Study Comparison: 01/11/2021 Left Diagnostic Mammogram, [facility]. 06/15/2021 Bilateral Diagnostic Mammogram, [facility]. 06/17/2022 Bilateral MG 3D screening mammo w/cad, [facility]. Pathology Description: Location: 7 o'clock. The ultrasound guided cyst aspiration procedure was explained to the patient. The risks, benefits, alternatives were discussed. An informed consent was then obtained. A time out was performed. The patient was placed in supine positioning for imaging and for the procedure. The overlying skin was prepped with ChloraPrep and sterilely draped in usual sterile fashion. 5 ml 1% lidocaine was used as anesthetic into the skin and deeper breast tissue up to area of concern in 7:00 periareolar left breast. Under ultrasound guidance, an 18-gauge spinal needle was advanced into the cyst and aspiration yielded 6 mL of murky yellow fluid. The fluid was labeled and sent for laboratory analysis as a precautionary measure. Given benign character of the fluid, no clip was deployed. Good hemostasis was obtained with direct pressure. The cyst collapsed completely with the aspiration. No postprocedure mammogram. The patient tolerated the procedure well without any immediate complication. The patient was discharged to home in stable condition. IMPRESSION: Successful ultrasound guided cyst aspiration left breast. Cytology pending. Pathology Results: Result: Benign, Benign cyst. LEFT BREAST, SEVEN O'CLOCK, FINE NEEDLE ASPIRATE: Foamy macrophages and degenerated cellular material consistent with cyst contents. Overall Assessment: Benign Management: Diagnostic Breast Ultrasound of the left breast in 6 months. Electronically signed and approved by: Gina Goyal M.D. Radiologist
== END ==
LOC: RADUSWWP 10:00
PROVIDERS: ATTEND Internal Medicine Geriatric Medicine
DX: N63.0 Unspecified lump in unspecified breast (principal); N60.02 Solitary cyst of left breast
CPT/HCPCS: 76942; 88173; 88305

== ENCOUNTER → 2022-09-16 | Outpatient (CLI) | payer MEDICARE, BC ==
[2022-09-16 23:03] LABS: BUN/Creat Ratio 19.64 Ratio (12.00-20.00); Blood Urea Nitrogen 27.5 mg/dL (9.0-27.0); Chloride 106 mmol/L (96-109); Chol/HDL Ratio 3.04 Ratio; Glucose 93 mg/dL (70-110); LDL Cholesterol,Calculated 89.8 mg/dL (0.0-131.0); Potassium 4.5 mmol/L (3.5-5.5); Sodium 141 mmol/L (135-145)
[2022-09-16 23:04] LABS: ALT 21 U/L (8-44); AST 22 U/L (13-35); Albumin 4.5 d/dL (3.8-4.9); Albumin/Globulin Ratio 2.37 Ratio (1.60-3.17); Alkaline Phosphatase 67 U/L (41-126); Calcium 9.9 mg/dL (8.7-10.3); Carbon Dioxide 24.8 mmol/L (21.6-31.8); Globulin 1.9 d/dL (1.6-3.3); Total Bilirubin 0.8 mg/dL (0.3-1.2); Total Protein 6.4 d/dL (6.2-8.2)
[2022-09-17 07:20] LABS: Basophils # (A) 0.03 X 10*3/uL (0.00-0.10); Basophils % (A) 0.5 %; Eosinophils % (A) 1.6 %; HCT 39.1 % (37.2-46.3); HGB 12.7 d/dL (12.0-15.0); Lymphocytes # (A) 2.21 X 10*3/uL (0.90-5.00); Lymphocytes % (A) 34.7 %; MCH 31.1 pg (27.0-32.0); MCHC 32.5 d/dL (32.0-37.0); MCV 95.6 FL (80.0-97.0); Mean Platelet Volume 12.8 FL (9.5-12.2); Monocytes # (A) 0.55 X 10*3/uL (0.20-1.00); Monocytes % (A) 8.6 %; NRBC Per 100 WBC 0 X 10*3/uL (0.00-0.01); Neutrophils # (A) 3.45 X 10*3/uL (1.80-7.70); Neutrophils % (A) 54.3 %; Platelet Count 145 X 10*3/uL (140-440); RBC 4.09 X 10*6/uL (4.10-5.20); RDW 12.9 % (11.5-14.5); WBC 6.36 X 10*3/uL (4.50-10.00)
== END | disposition home or self-care (01) ==
LOC: LABWHC1 12:39
PROVIDERS: ATTEND Internal Medicine Geriatric Medicine
DX: Z00.00 Encounter for general adult medical examination without abnormal findings (principal); E78.2 Mixed hyperlipidemia; E55.9 Vitamin D deficiency, unspecified; R73.9 Hyperglycemia, unspecified
CPT/HCPCS: 36415; 80053; 80061; 82306; 83036; 84443; 85025

== ENCOUNTER → 2023-04-09 | Outpatient (CLI) | payer BC ==
[2023-04-09 19:00] LABS: Basophils # (A) 0.02 X 10*3/uL (0.00-0.10); Basophils % (A) 0.3 %; Eosinophils # (A) 0.14 X 10*3/uL (0.04-0.35); Eosinophils % (A) 2.2 %; HCT 40.6 % (37.2-46.3); HGB 13.5 g/dL (12.0-15.0); Lymphocytes # (A) 2.11 X 10*3/uL (0.90-5.00); Lymphocytes % (A) 33.3 %; MCH 31.3 pg (27.0-32.0); MCHC 33.3 g/dL (32.0-37.0); Mean Platelet Volume 13.1 FL (9.5-12.2); Monocytes # (A) 0.57 X 10*3/uL (0.20-1.00); NRBC Per 100 WBC 0 X 10*3/uL (0.00-0.01); Neutrophils # (A) 3.48 X 10*3/uL (1.80-7.70); Neutrophils % (A) 54.9 %; Platelet Count 146 X 10*3/uL (140-440); RBC 4.32 X 10*6/uL (4.10-5.20); RDW 12.7 % (11.5-14.5); WBC 6.34 X 10*3/uL (4.50-10.00)
[2023-04-09 23:11] LABS: Chol/HDL Ratio 2.49 Ratio
[2023-04-09 23:12] LABS: ALT 23 U/L (8-44); AST 24 U/L (13-35); Albumin 4.6 g/dL (3.8-4.9); Albumin/Globulin Ratio 2.09 Ratio (1.60-3.17); Alkaline Phosphatase 72 U/L (41-126); BUN/Creat Ratio 16.79 Ratio (12.00-20.00); Blood Urea Nitrogen 23.5 mg/dL (9.0-27.0); Calcium 9.9 mg/dL (8.7-10.3); Chloride 106 mmol/L (96-109); Globulin 2.2 g/dL (1.6-3.3); Glucose 96 mg/dL (70-110); Potassium 4.3 mmol/L (3.5-5.5); Sodium 143 mmol/L (135-145); Total Bilirubin 0.9 mg/dL (0.3-1.2); Total Protein 6.8 g/dL (6.2-8.2)
== END | disposition home or self-care (01) ==
LOC: LABWHC1 12:15
PROVIDERS: ATTEND Internal Medicine Geriatric Medicine
DX: E78.2 Mixed hyperlipidemia (principal); N18.9 Chronic kidney disease, unspecified; R73.9 Hyperglycemia, unspecified
CPT/HCPCS: 36415; 80053; 80061; 83036; 85025

== ENCOUNTER → 2023-06-19 | Outpatient (CLI) | payer MEDICARE ==
--- NOTE | 2023-06-23 00:10 | MM ---
Reason for Exam: Screening (asymptomatic). Last screening mammogram was performed 12 month(s) ago. Patient History: Menarche at age 11. First Full-Term at age 17. Hysterectomy at age 43. Postmenopausal. Estrogen for 3 years, 1 month. Patient used Hormonal Contraceptives for 2 years. 08/01/2022, Benign US breast aspiration single LT on the left side. Excisional Biopsy on the Left side. 11/07/1997, Benign Cyst Aspiration on the left side. Risk Values: Perri 5 year model risk: 1.6%. NCI Lifetime model risk: 5.2%. Prior Study Comparison: 01/11/2021 Left Diagnostic Mammogram, [facility]. 06/15/2021 Bilateral Diagnostic Mammogram, [facility]. 06/17/2022 Bilateral MG 3D screening mammo w/cad, [facility]. Tissue Density: The breasts are heterogeneously dense, which may obscure small masses. Findings: Analyzed By CAD. Unchanged asymmetric density medial right breast. There is no suspicious group of microcalcifications or new suspicious mass in either breast. Overall Assessment: Benign, BI-RAD 2 Management: Screening Mammogram of both breasts in 1 year. . Patient should continue monthly self-breast exams. A clinical breast exam by your physician is recommended on an annual basis. This exam should not preclude additional follow-up of suspicious palpable abnormalities. Note on Perri scores and lifetime risk: 1. A Perri score greater than 3% is considered moderate risk. If this is the case, consider specialist referral to assess eligibility for a risk reducing agent. 2. If overall lifetime risk for the development of breast cancer is 20% or higher, the patient may qualify for future screening with alternating mammogram and breast MRI. Electronically signed and approved by: Gina Goyal M.D. Radiologist
== END | disposition home or self-care (01) ==
LOC: RADMAMWWP 13:34
PROVIDERS: ATTEND Internal Medicine Geriatric Medicine
DX: Z12.31 Encounter for screening mammogram for malignant neoplasm of breast (principal); Z78.0 Asymptomatic menopausal state
CPT/HCPCS: 77063; 77067

== ENCOUNTER → 2023-10-20 | Outpatient (CLI) | payer MEDICARE ==
[2023-10-20 15:51] LABS: ALT 21 U/L (8-44); AST 22 U/L (13-35); Albumin 4.6 g/dL (3.8-4.9); Albumin/Globulin Ratio 2.42 Ratio (1.60-3.17); Alkaline Phosphatase 68 U/L (41-126); BUN/Creat Ratio 20.53 Ratio (12.00-20.00); Blood Urea Nitrogen 30.8 mg/dL (9.0-27.0); Calcium 9.6 mg/dL (8.7-10.3); Carbon Dioxide 23.3 mmol/L (21.6-31.8); Chloride 104 mmol/L (96-109); Chol/HDL Ratio 2.42 Ratio; Globulin 1.9 g/dL (1.6-3.3); Glucose 102 mg/dL (70-110); LDL Cholesterol,Calculated 75.5 mg/dL (0.0-131.0); Potassium 3.9 mmol/L (3.5-5.5); Sodium 143 mmol/L (135-145); T4, Free (Free Thyroxine) 1.59 ng/dL (0.80-1.80); Total Protein 6.5 g/dL (6.2-8.2)
[2023-10-20 17:03] LABS: Basophils # (A) 0.02 X 10*3/uL (0.00-0.10); Basophils % (A) 0.2 %; Eosinophils % (A) 1.2 %; HCT 39.8 % (37.2-46.3); HGB 13.3 g/dL (12.0-15.0); Lymphocytes % (A) 22.9 %; MCH 31.6 pg (27.0-32.0); MCHC 33.4 g/dL (32.0-37.0); MCV 94.5 FL (80.0-97.0); Monocytes # (A) 0.74 X 10*3/uL (0.20-1.00); Monocytes % (A) 8.9 %; NRBC Per 100 WBC 0 X 10*3/uL (0.00-0.01); Neutrophils % (A) 66.3 %; Platelet Count 132 X 10*3/uL (140-440); RBC 4.21 X 10*6/uL (4.10-5.20); RDW 12.5 % (11.5-14.5)
== END | disposition home or self-care (01) ==
LOC: LABWHC1 12:15
PROVIDERS: ATTEND Internal Medicine Geriatric Medicine
DX: C64.2 Malignant neoplasm of left kidney, except renal pelvis (principal); E78.2 Mixed hyperlipidemia; E21.5 Disorder of parathyroid gland, unspecified; M81.0 Age-related osteoporosis without current pathological fracture; R73.9 Hyperglycemia, unspecified
CPT/HCPCS: 36415; 80053; 80061; 82306; 83036; 84439; 84443; 85025

== ENCOUNTER → 2023-12-24 | Outpatient (CLI) | payer MEDICARE ==
--- NOTE | 2023-12-24 21:29 | BD ---
EXAMINATION TYPE: Axial Bone Density DATE OF EXAM: 12/24/2023 CLINICAL HISTORY: 68 years old Female. ICD-10 CODE: M81.0 OSTEOPOROSIS Height: 63 Weight: 155 FRAX RISK QUESTIONS: 3. Menopause before 45: no about early 50s RISK FACTORS HISTORY OF: hx of TKR lt knee, osteoarthritis, hx of kidney cancer, with removal, MEDICATIONS: vit d, multivitamin, bp meds, cholesterol meds, EXAM MEASUREMENTS: Bone mineral densitometry was performed using the [employer] System. Bone mineral density as measured about the Lumbar spine is: ----- L1-L4(G/cm2): 1.006 T Score Values are as follows: ----- L1: -1.6 ----- L2: -2.5 ----- L3: -1.6 ----- L4: -0.5 ----- L1-L4: -1.4 Z Score Values are as follows: ----- L1: -0.2 ----- L2: -1.1 ----- L3: -0.2 ----- L4: 1.0 ----- L1-L4: 0.0 Bone mineral density has: Increased 2.1% since study of: 04.03.2016 Bone mineral density about the R hip (g/cm2): 0.922 Bone mineral density about the L hip (g/cm2): 0.883 T Score values are as follows: -----R Neck: -1.2 -----L Neck: -1.8 -----R Total: -0.7 -----L Total: -1.0 Z Score values are as follows: -----R Neck: 0.3 -----L Neck: -0.3 -----R Total: 0.6 -----L Total: 0.3 Bone mineral density has: Decreased -5.9% since study of: 04.03.2016 FRAX%s: The graph provided illustrates a 10.7% chance for a major osteoporotic fx and a 1.7% chance f or the hips probability for fx in 10 years time. IMPRESSION: Osteopenia (T Score between -2.5 and -1). There is slightly increased risk of fracture and the patient may be considered for treatment. Re-Screen 2-5 years. NOTE: T-SCORE=SD OF THE YOUNG ADULT MEAN. [facility], , 12/24/2023 9:27 PM
== END | disposition home or self-care (01) ==
LOC: RADBDWWP 12:57
PROVIDERS: ATTEND Internal Medicine Geriatric Medicine
DX: M81.0 Age-related osteoporosis without current pathological fracture (principal)
CPT/HCPCS: 77080

== ENCOUNTER → 2024-01-07 | Outpatient (CLI) | payer MEDICARE ==
--- NOTE | 2024-01-07 13:41 | CT ---
INDICATION: Patient age:Female; 68 years old; Reason for study: [facility] Protocol for right replacement, R91.8 Other nonspecific abnormal finding of richelle ng f; preop right knee replacement. H. COMPARISON: None TECHNIQUE: Thin section axial CT imaging of the entire right lower extremity was performed per [facility] protocol, wi thout the administration of IV contrast. Additional axial images of the bilateral hips and ankles wit h other knee were also obtained. Reformatted images in coronal and sagittal views obtained. FINDINGS: There is no evidence of acute fracture or dislocation. The hips are grossly unremarkable. The right knee demonstrates tricompartmental joint space narrowing with marginal spurring. Most prono unced involving the medial tibiofemoral joint space. Small joint effusion. The ankles grossly unremarkable. Right plantar calcaneal enthesophyte. Sigmoid diverticulosis. IMPRESSION: [facility] protocol for right knee joint replacement. Moderate tricompartmental osteoarthritic change of th e right knee. [facility], , 01/07/2024 1:39 PM
== END | disposition home or self-care (01) ==
LOC: RADCTMAIN 11:55
PROVIDERS: ATTEND Orthopaedic Surgery
DX: Z01.818 Encounter for other preprocedural examination (principal); M17.11 Unilateral primary osteoarthritis, right knee; M21.161 Varus deformity, not elsewhere classified, right knee; N18.9 Chronic kidney disease, unspecified; R91.8 Other nonspecific abnormal finding of lung field; Z96.651 Presence of right artificial knee joint

== ENCOUNTER → 2024-01-29 | Outpatient (CLI) | payer MEDICARE ==
[2024-01-29 14:26] LABS: INR 0.9 (<1.2); Partial Thromboplastin Time 23.8 sec (22.0-30.0); Prothrombin Time 10.2 sec (10.0-12.5)
[2024-01-29 20:10] LABS: HCT 39.9 % (37.2-46.3); HGB 13.6 g/dL (12.0-15.0); MCH 32.5 pg (27.0-32.0); MCHC 34.1 g/dL (32.0-37.0); MCV 95.2 FL (80.0-97.0); NRBC Per 100 WBC 0 X 10*3/uL (0.00-0.01); Platelet Count 148 X 10*3/uL (140-440); RBC 4.19 X 10*6/uL (4.10-5.20); RDW 12.3 % (11.5-14.5); WBC 7.62 X 10*3/uL (4.50-10.00)
[2024-01-29 20:20] LABS: ALT 16 U/L (8-44); AST 19 U/L (13-35); Albumin 4.6 g/dL (3.8-4.9); Alkaline Phosphatase 71 U/L (41-126); BUN/Creat Ratio 23.54 Ratio (12.00-20.00); Blood Urea Nitrogen 30.6 mg/dL (9.0-27.0); Calcium 9.4 mg/dL (8.7-10.3); Carbon Dioxide 24.7 mmol/L (21.6-31.8); Chloride 103 mmol/L (96-109); Glucose 94 mg/dL (70-110); Sodium 140 mmol/L (135-145); Total Bilirubin 0.7 mg/dL (0.3-1.2); Total Protein 6.6 g/dL (6.2-8.2)
== END | disposition home or self-care (01) ==
LOC: LABPAT 13:17
PROVIDERS: ATTEND Orthopaedic Surgery
CPT/HCPCS: 80053; 83036; 85027; 85610; 85730; 87070; 93005

== ENCOUNTER 2024-02-13 05:39 | Day surgery (SDC) | payer MEDICARE ==
[2024-02-13] MEDS ORDERED: TRANEXAMIC 1,000 MG/100ML-NACL 1,000 MG in SALINE 1 100ML.BAG IV PRN (06:00)
[2024-02-13] MEDS ORDERED: TRANEXAMIC 1,000 MG/100ML-NACL 1,000 MG in SALINE 1 100ML.BAG IVPB PRN (06:00)
[2024-02-13] MEDS: ACETAMINOPHEN TAB 500 MG TAB PO PRN (06:41)
[2024-02-13] MEDS: DOCUSATE 100 MG CAP PO PRN (06:41)
[2024-02-13] MEDS: oxyCODONE ER 10 MG TAB.ER.12H PO PRN (06:42)
[2024-02-13] MEDS: LACTATED RINGERS 1,000 ML IV SCH (06:55)
[2024-02-13] MEDS: KETOROLAC 15 MG/ML 1 ML VIAL IVP PRN (06:56)
[2024-02-13] MEDS: DEXAMETHASONE SOD PHOSPHATE 10 MG/ML 1 ML VIAL IV PRN (06:56)
[2024-02-13] MEDS: FAMOTIDINE 20 MG/2 ML VIAL IVP PRN (06:56)
[2024-02-13] MEDS: ONDANSETRON 4 MG/2 ML VIAL IVP PRN (06:57)
[2024-02-13] MEDS ORDERED: fentaNYL (PF) 50 MCG/ML 2 ML AMP IV PRN (07:00)
[2024-02-13] MEDS: IV FLUID CONTINUATION 1,000 ML IV ONE (07:01)
[2024-02-13] MEDS: MIDAZOLAM 2 MG/2 ML VIAL IV PRN (07:08)
[2024-02-13] MEDS ORDERED: NEOSTIGMINE 1 MG/ML 10 ML VIAL ONE (07:31)
[2024-02-13] MEDS ORDERED: MIDAZOLAM 2 MG/2 ML VIAL ONE (07:31)
[2024-02-13] MEDS ORDERED: PROPOFOL 10 MG/ML 20 ML VIAL IV ONE (07:31)
[2024-02-13] MEDS ORDERED: HYDROmorphone (PF) 1 MG/ML ONE (07:31)
[2024-02-13] MEDS ORDERED: ROCURONIUM 10 MG/ML (5 ML VIAL) IV ONE (07:31)
[2024-02-13] MEDS ORDERED: fentaNYL (PF) 50 MCG/ML 2 ML AMP ONE (07:31)
[2024-02-13] MEDS ORDERED: TRANEXAMIC 1,000 MG/100ML-NACL PREMIX BAG ONE (07:31)
[2024-02-13] MEDS ORDERED: LIDOCAINE 1% INJ 10MG/ML (20 ML MDV) ONE (07:31)
[2024-02-13] MEDS ORDERED: ROPIVACAINE 5 MG/ML 30 ML VIAL ONE (07:31)
[2024-02-13] MEDS ORDERED: SODIUM CHLORIDE 0.9% (PF) 10 ML VIAL ONE (07:31)
[2024-02-13] MEDS ORDERED: SUCCINYLCHOLINE CHLORIDE 200 MG/10 ML VIAL IV ONE (07:31)
[2024-02-13] MEDS ORDERED: GLYCOPYRROLATE 0.2 MG/ML 2 ML VIAL ONE (07:31)
--- NOTE | 2024-02-13 07:53 | P.ANPRN ---
Procedure Note - Anesthesia - Nerve Block Performed Right Adductor Canal Single Time Out Performed: Yes (0708) Date of Procedure: 02/13/24 Procedure Start Time: : Procedure Stop Time: :13 Location of Patient: PreOp Indication: Acute Post-Operative Pain, Requested by Surgeon Sedation Type: Sedate with meaningful contact maintained Preparation: Sterile Prep, Sterile Dressing Position: Supine Catheter: None Needle Types: Pajunk Needle Gauge: 21 Ultrasound used to visualize needle placement: Yes Ultrasound used to observe medication spread: Yes Injectate: 0.5% Ropivacaine (see comment for volume) (20ml) Blood Aspirated: No Pain Paresthesia on Injection Noted: No Resistance on Injection: Normal Image Stored and Saved: Yes Events: Uneventful and Well Tolerated
--- NOTE | 2024-02-13 07:55 | P.ANPRN ---
Procedure Note - Anesthesia - Nerve Block Performed Right iPack Single Time Out Performed: Yes (0708) Date of Procedure: 02/13/24 Procedure Start Time: : Procedure Stop Time: : Location of Patient: PreOp Indication: Acute Post-Operative Pain, Requested by Surgeon Sedation Type: Sedate with meaningful contact maintained Preparation: Sterile Prep, Sterile Dressing Position: Supine Catheter: None Needle Gauge: 21 Ultrasound used to visualize needle placement: Yes Ultrasound used to observe medication spread: Yes Injectate: 0.5% Ropivacaine (see comment for volume) Blood Aspirated: No Pain Paresthesia on Injection Noted: No Resistance on Injection: Normal Image Stored and Saved: Yes Events: Uneventful and Well Tolerated (20 ml of block solution containing - 10 ml of PF normal saline mixed with 10 ml of 0.5% ropivacaine)
[2024-02-13] MEDS: ROPIVACAINE/EPI/CLONIDINE/KET 50 ML SYRINGE MISCELLANE PRN (08:02)
[2024-02-13] MEDS: LACTATED RINGERS 1,000 ML IV ONE (09:07)
--- NOTE | 2024-02-13 09:27 | P.OP ---
Date of Procedure: 02/13/24 Preoperative Diagnosis: 1. Severe right knee osteoarthritis 2. Prior left total knee replacement 3. History of nephrectomy (Avoid NSAIDS) Postoperative Diagnosis: Same Procedure(s) Performed: 1. Right total knee arthroplasty 2. Computer assisted musculoskeletal navigation using CT/MRI images Implants: 1. [employer] CR Femur Size #4 2. [employer] [place] Tibial Base Size #3 3. [place] [employer] CS poly Size #3, 9-mm 4. [employer] all poly patella, Size #29 Anesthesia: GETA, regional Surgeon: Luther Bartholomew [employer] Consultant #1: Drake Gilman Estimated Blood Loss (ml): 100 IV fluids (ml): 1,000 Pathology: none sent Condition: stable Disposition: PACU Indications for Procedure: Val is a very pleasant 69-year-old female well-known to my practice. I've been treating her for bilateral knee arthritis. In 2021 she underwent a left total knee replacement. She had a slow recovery but ultimately did well with improvement in her arthritic pain although she did still continue to complain of lateral sided pain and numbness. She also felt that her knee was tight. I've since been treating her right knee which has endstage osteoarthritis. She has had a long course of nonsurgical treatment. She has had a prior nephrectomy which prevents her from taking NSAIDs pain medications. She had exhausted all nonsurgical treatment and although see had some reservations after her left knee replacement ultimately decided to proceed with a right total knee replacement. 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 She understands the potential for continued pain in her right knee and his satisfaction. I reassured her that I would do my best to give her a well-functioning total knee replacement. She accepted this and elected to proceed with a knee replacement. Risks discussed included: risks from anesthesia, superficial site surgical infection, acute and/or chronic periprosthetic joint infection, delayed wound healing, drainage, wound necrosis, instability, stiffness, stiffness requiring manipulation and/or revision surgery, damage to local blood vessels or nerves, aseptic loosening of the implants, extensor mechanism issues including disruption, patellar maltracking, avascular necrosis etc., continued or worsened knee pain, generalized dissatisfaction with surgical outcome, need for revision surgery, an inability to regain preinjury level of function, DVT, PE, other medical complications, and possibly loss of life or limb. The patient voiced their understanding that while these are the most common complications other less common complications are possible. They provided both their verbal and written consent to go forward with surgery. Operative Findings: Full thickness cartilage loss in the medial and patellofemoral compartments. Partial-thickness cartilage loss in the lateral compartment. Description of Procedure: The patient was identified in preoperative holding and the correct operative extremity was verified and marked with a marker. I reviewed the consent form with her at length. All of her questions were answered. The patient was given a block by anesthesia. They were then brought back to the operating room. They were transferred onto the operating room table where a general anesthetic, preoperative antibiotics, and tranexamic acid were administered by anesthesia. A tourniquet was applied to the proximal aspect of the operative extremity. The contralateral extremity was padded under the heel and secured to the operating room table with a nonsterile blue towel and tape. The ipsilateral arm was carefully draped across the patient's chest and secured with a pillow and foam. A post was applied over the lateral aspect of the ipsilateral thigh and a bolster was placed under the ipsilateral foot. I verified that the operative extremity was stable and the knee was flexed to 90. The operative extremity was then placed in a leg urrutia, nonsterile drapes were applied, and the extremity was prepped and draped sterilely in the standard sterile fashion. Prior to starting surgery timeout was performed identifying the correct patient, operative extremity, and procedure. The leg was then elevated, exsanguinated with an Esmarch bandage, and the tourniquet was inflated. An anterior midline incision was made sharply with a scalpel. Once I had dissected deep to the superficial fascial layer medial and lateral flaps were elevated. A medial parapatellar arthrotomy was created. Upon opening the knee joint there were diffuse arthritic changes in all 3 compartments. The anterior horn of the medial meniscus were sharply released and a medial release was performed around the posterior medial corner of the knee to facilitate retractor placement. The fat pad was excised with electrocautery. Remnants of the ACL and PCL were then excised from the notch. 4 mm pins were then placed within the incision in the medial distal femur and proximal tibia. Arrays were applied to the pins and I verified they were completely tightened. The knee was then registered with the [employer] robot and manipulations in implant position were made to balance the knee and opitmize implant position. The patient had 10-degrees of varus and a 3 degree flexion contracture. The knee was balanced with 1-degree of varus in the tibia and 3 degrees of varus in the distal femur creating a symmetric extension gap. The flexion gap was then balanced with rotation of the femur. There were symmetric flexion and extension gaps. Using the Trent robotic saw all cuts were made in accordance with our plan. After all bony fragments had been removed the cuts were verified with the planar probe. The tibia was then subluxed forward and sized. The knee was brought into flexion and a lamina gridcap machine operator was placed to allow removal of the meniscal remnants both medially and laterally as well as posterior osteophytes. Local anesthetic was then infiltrated around the joint capsule. Trial implants were then placed within the knee. Range of motion and collateral ligament tension was then evaluated. There was 4 degrees of varus in extension and the knee was well balanced with full ROM and symmetric flexion and extension gaps. The tension of the medial and lateral tissues was symmetric. Once the knee was felt to be appropriately balanced the Trent pins were removed. The patella was sized to 22-mm then cut to 14-mm, sized, and punched. A trial patellar button was then placed. With the trial components in place, the patella tracked midline. The femur was then drilled and the trial component removed. The trial tibial component was then appropriately rotated, pinned, and prepared for the keel. All trial components were then removed from the knee. The knee was thoroughly irrigated with pulsatile lavage. Cement was prepared via vacuum mixing in a bowl on the back table. I then hand pressurized cement into the femur and tibia and placed the implants beginning with the tibial base tray and poly liner, femoral component, and finally the patellar button. All extruded cement was removed including from the pin sites. Once the cement had hardened the knee was evaluated one final time with the final polyethylene liner in place. The knee had full extension and flexion and felt stable to varus and valgus stress throughout the arc of motion. The tourniquet was released and with the tourniquet down the patella tracked midline. All bleeders were controlled with electrocautery. The knee was then soaked for 3 minutes with a dilute Betadine soak. The knee was thoroughly irrigated using 3 L of sterile saline and pulsatile lavage. The extensor mechanism was then reapproximated using pop off Vicryl sutures followed by a running barbed suture. The knee was then closed in layers with a 0 strata fix for the deep fascial layer, 2-0 strata fix for the superficial subcutaneous layer and Monocryl and Steri-Strips for the skin. A sterile dressing was applied. I verified that all instrument, sponge, and sharp counts were correct. The patient was then transferred off the operating room table, extubated, and brought to recovery having tolerated the procedure well. Drake Gilman PA-C was required as a skilled agency sales management assistant for patient positioning, draping, exposure, retraction, closure of wound and application of dressing PLAN: The patient can weight-bear as tolerated on the operative extremity. DVT prophylaxis with aspirin 81 mg twice a day based on preoperative risk stratification. Internal medicine for perioperative medical management. 2 doses of post-operative antibiotics. Avoid NSAIDS due to prior nephrectomy. Physical therapy for gait training. Follow-up in the office in 2 weeks for wound check and x-rays of the knee including an AP and lateral.
[2024-02-13] MEDS ORDERED: hydrOXYzine pamoate 25 MG CAP PO PRN (10:20)
[2024-02-13] MEDS ORDERED: bisacodyL 10 MG SUPP RECTAL PRN (10:20)
[2024-02-13] MEDS ORDERED: ONDANSETRON 4 MG/2 ML VIAL IVP PRN (10:20)
[2024-02-13] MEDS ORDERED: NALOXONE 0.4 MG/ML 1 ML VIAL IV PRN (10:20)
[2024-02-13] MEDS ORDERED: MAGNESIUM HYDROXIDE 2,400 MG/30 ML CUP PO PRN (10:20)
[2024-02-13] MEDS ORDERED: HYDROmorphone 0.5 MG/0.5 ML SYRINGE IVP PRN (10:20)
[2024-02-13] MEDS ORDERED: diazePAM 5 MG TAB PO PRN (10:20)
[2024-02-13] MEDS ORDERED: NA PHOS,M-B/NA PHOS,DI-BA 133 ML ENEMA RECTAL PRN (10:20)
--- NOTE | 2024-02-13 11:04 | XR ---
EXAMINATION TYPE: XR knee limited RT DATE OF EXAM: 02/13/2024 COMPARISON: NONE CLINICAL INDICATION: Female, 69 years old with history of Evaluation for Postop abnormality and align ment; TECHNIQUE: Two views submitted FINDINGS: There is a prosthetic knee in near anatomic alignment. There is soft tissue edema and soft tissue e mphysema\air. IMPRESSION: 1. Postoperative change. [facility], , 02/13/2024 11:01 AM
[2024-02-13] MEDS: oxyCODONE-APAP 5-325MG 1 EACH TAB PO PRN (12:54)
[2024-02-13 14:21] VITALS: RESP 17
[2024-02-13] MEDS: SODIUM CHLORIDE 0.9% 1,000 ML IV SCH (14:32)
[2024-02-13] MEDS ORDERED: ALBUTEROL NEBULIZED 2.5 MG/3 ML INHALATION PRN (14:53)
[2024-02-13] MEDS ORDERED: hydroCHLOROthiazide 12.5 MG CAP PO PRN (14:53)
[2024-02-13] MEDS: carvediloL 6.25 MG TAB PO SCH (15:58)
[2024-02-13] MEDS: traMADol 50 MG TAB PO PRN (15:58)
[2024-02-13] MEDS: ATORVASTATIN 20 MG TAB PO SCH (21:20)
[2024-02-13] MEDS: ASPIRIN 81 MG PO SCH (21:20)
[2024-02-13] MEDS ORDERED: TEMAZEPAM 15 MG CAP PO PRN (22:00)
[2024-02-13] MEDS: SENNOSIDES-DOCUSATE SODIUM 1 EACH TAB PO SCH (22:16)
--- NOTE | 2024-02-14 08:41 | P.DS ---
Providers Date of admission: 02/13/2024 Attending physician: Luther Bartholomew Consults: 02/13/24 10:20 Consult Physician Routine Consulting Provider: Boni Calderon Reason/Comments: post op medical management Do you want consulting provider notified?: Yes Primary care physician: Boni Calderon [facility] Course: The patient is a very pleasant 69-year-old female who was admitted under my care yesterday and underwent an uncomplicated total knee replacement. Following surgery she was transferred to the orthopedic floor. She worked with physical therapy and did well. Overnight her dressing did become saturated and required reinforcement. On postoperative day #1 I evaluated the patient at bedside. She had some discomfort and swelling in her knee but otherwise was doing well. Her dressing was taken down and there was no active drainage from her incision. There was a moderate amount of swelling in the knee but the thigh and calf were soft and compressible. She was moving her toes up and down. A new dressing was applied. Internal medicine was consulted. The patient did well and was ultimately discharged home. Patient Condition at Discharge: Good Plan - Discharge Summary Discharge Rx Participant: No New Discharge Prescriptions: New Aspirin 81 mg PO BID #60 tab Docusate [Colace] 100 mg PO BID #60 capsule Omeprazole [PriLOSEC] 40 mg PO DAILY #30 cap No Action Aspirin 81 mg PO DAILY hydroCHLOROthiazide [Hydrodiuril] 12.5 mg PO Q48H PRN PRN Reason: Blood Pressure Cholecalciferol [Vitamin D3 (25 Mcg = 1000 Iu)] 1,000 unit PO DAILY carvediloL [Coreg] 6.25 mg PO BID Rosuvastatin [Crestor] 10 mg PO HS L.acidoph,Paracasei, B.lactis [Probiotic] 1 each PO DAILY Acetaminophen [Tylenol Extra Strength] 500 mg PO BID PRN PRN Reason: DAILY Albuterol Inhaler [Ventolin Hfa Inhaler] 1 - 2 inh INHALATION QID PRN PRN Reason: Shortness Of Breath Discharge Medication List Aspirin 81 mg PO DAILY 03/09/14 [History] hydroCHLOROthiazide [Hydrodiuril] 12.5 mg PO Q48H PRN 03/09/14 [History] Cholecalciferol [Vitamin D3 (25 Mcg = 1000 Iu)] 1,000 unit PO DAILY 05/09/17 [History] carvediloL [Coreg] 6.25 mg PO BID 05/09/17 [History] Rosuvastatin [Crestor] 10 mg PO HS 05/23/20 [History] Acetaminophen [Tylenol Extra Strength] 500 mg PO BID PRN 12/11/21 [History] L.acidoph,Paracasei, B.lactis [Probiotic] 1 each PO DAILY 12/11/21 [History] Albuterol Inhaler [Ventolin Hfa Inhaler] 1 - 2 inh INHALATION QID PRN 02/10/24 [History] Aspirin 81 mg PO BID #60 tab 02/14/24 [Rx] Docusate [Colace] 100 mg PO BID #60 capsule 02/14/24 [Rx] Omeprazole [PriLOSEC] 40 mg PO DAILY #30 cap 02/14/24 [Rx] Activity/Diet/Wound Care/Special Instructions: Attend outpatient physical therapy as set up prior to your surgery.
[2024-02-14 08:49] VITALS: BP 155/80; PULSE 72; TEMP 97.4
[2024-02-14] MEDS: LACTOBACILLUS ACIDOPHILUS/PECT 1 EACH CAPSULE PO SCH (09:03)
[2024-02-14] MEDS: CHOLECALCIFEROL 25 MCG (1000 IU) TABLET PO SCH (09:03)
[2024-02-14 11:26] LABS: Basophils # (A) 0.02 X 10*3/uL (0.00-0.10); Basophils % (A) 0.2 %; Eosinophils # (A) 0.01 X 10*3/uL (0.04-0.35); Eosinophils % (A) 0.1 %; HCT 32.7 % (37.2-46.3); HGB 10.7 g/dL (12.0-15.0); Lymphocytes # (A) 2.26 X 10*3/uL (0.90-5.00); Lymphocytes % (A) 20.7 %; MCH 31.9 pg (27.0-32.0); MCHC 32.7 g/dL (32.0-37.0); MCV 97.6 FL (80.0-97.0); Mean Platelet Volume 13.3 FL (9.5-12.2); Monocytes # (A) 1.26 X 10*3/uL (0.20-1.00); Monocytes % (A) 11.5 %; NRBC Per 100 WBC 0 X 10*3/uL (0.00-0.01); Neutrophils # (A) 7.33 X 10*3/uL (1.80-7.70); Platelet Count 117 X 10*3/uL (140-440); RBC 3.35 X 10*6/uL (4.10-5.20); RDW 12.7 % (11.5-14.5); WBC 10.93 X 10*3/uL (4.50-10.00)
== END 2024-02-14 10:24 | disposition home or self-care (01) ==
LOC: OR 05:39 → 4SSUR 13:32 → OR 02-14 10:24
PROVIDERS: ATTEND Orthopaedic Surgery
DX: M17.11 Unilateral primary osteoarthritis, right knee (principal); G89.18 Other acute postprocedural pain; Z79.899 Other long term (current) drug therapy; Z90.5 Acquired absence of kidney; Z96.651 Presence of right artificial knee joint
CPT/HCPCS: 0055T; 27447; 64415; 64999; 64447; 85025

== ENCOUNTER → 2024-07-28 | Outpatient (CLI) | payer MEDICARE ==
--- NOTE | 2024-07-28 13:22 | MM ---
Reason for Exam: Screening (asymptomatic). Last mammogram was performed 1 year(s) and 1 month(s) ago. Patient History: Menarche at age 11. First Full-Term at age 17. Hysterectomy at age 43. Postmenopausal. Estrogen for 3 years, 1 month. Patient used Hormonal Contraceptives for 2 years. 08/01/2022, Benign US breast aspiration single LT on the left side. Excisional Biopsy on the Left side. 11/07/1997, Benign Cyst Aspiration on the left side. Risk Values: Perri 5 year model risk: 1.6%. NCI Lifetime model risk: 5.0%. Prior Study Comparison: 06/15/2021 Bilateral Diagnostic Mammogram, [facility]. 06/17/2022 Bilateral MG 3D screening mammo w/cad, [facility]. 06/19/2023 Bilateral MG 3D screening mammo w/cad, [facility]. Tissue Density: The breasts are heterogeneously dense, which may obscure small masses. Findings: Analyzed By CAD. New cluster of indeterminate microcalcifications upper outer quadrant right breast 2.2 cm from the nipple. Spot magnification compression views are recommended. No suspicious microcalcifications of the left breast. No distinct breast mass is appreciated. Overall Assessment: Incomplete: need additional imaging evaluation, BI-RAD 0 Management: Diagnostic Mammogram of the right breast. . Patient should continue monthly self-breast exams. A clinical breast exam by your physician is recommended on an annual basis. This exam should not preclude additional follow-up of suspicious palpable abnormalities. Note on Perri scores and lifetime risk: 1. A Perri score greater than 3% is considered moderate risk. If this is the case, consider specialist referral to assess eligibility for a risk reducing agent. 2. If overall lifetime risk for the development of breast cancer is 20% or higher, the patient may qualify for future screening with alternating mammogram and breast MRI. [facility], , 07/28/2024 1:20 PM. Electronically signed and approved by: Rios Melendrez M.D. Radiologis
== END | disposition home or self-care (01) ==
LOC: RADMAMWWP 13:00
PROVIDERS: ATTEND Internal Medicine Geriatric Medicine
DX: Z12.31 Encounter for screening mammogram for malignant neoplasm of breast (principal); R92.333 Mammographic heterogeneous density, bilateral breasts; Z78.0 Asymptomatic menopausal state; Z92.0 Personal history of contraception
CPT/HCPCS: 77063; 77067

== ENCOUNTER → 2024-07-30 | Outpatient (CLI) | payer MEDICARE ==
--- NOTE | 2024-07-30 13:29 | MM ---
Reason for Exam: Additional evaluation requested from abnormal screening. Last screening mammogram was performed less than 1 month ago. Patient History: Menarche at age 11. First Full-Term at age 17. Hysterectomy at age 43. Postmenopausal. Estrogen for 3 years, 1 month. Patient used Hormonal Contraceptives for 2 years. 08/01/2022, Benign US breast aspiration single LT on the left side. Excisional Biopsy on the Left side. 11/07/1997, Benign Cyst Aspiration on the left side. Risk Values: Perri 5 year model risk: 1.6%. NCI Lifetime model risk: 5.0%. Prior Study Comparison: 08/27/1997 Screening Mammogram, Unknown. 05/22/2017 Bilateral Screening Mammogram, [facility]. 11/20/2017 Right Diagnostic Mammogram, [facility]. 05/26/2018 Bilateral Screening Mammogram, [facility]. 06/10/2019 Bilateral Screening Mammogram, [facility]. 06/17/2019 Left Diagnostic Mammogram, [facility]. 06/14/2020 Bilateral Screening Mammogram, [facility]. 07/10/2020 Left Diagnostic Mammogram, [facility]. 01/11/2021 Left Diagnostic Mammogram, [facility]. 06/15/2021 Bilateral Diagnostic Mammogram, [facility]. 06/17/2022 Bilateral MG 3D screening mammo w/cad, [facility]. 07/18/2022 Left US breast limited LT, [facility]. 01/07/2023 Left US breast limited LT, [facility]. 06/19/2023 Bilateral MG 3D screening mammo w/cad, [facility]. 07/28/2024 Bilateral MG 3D screening mammo w/cad, [facility]. Tissue Density: Right: The breasts are heterogeneously dense, which may obscure small masses. Findings: Analyzed By CAD. Redemonstrated is a group of microcalcifications inner lower right breast which appear to correlate to a skin keratosis which is marked with a skin marker. As a precautionary measure six-month follow-up mammography is advised. Overall Assessment: Probably benign, BI-RAD 3 Management: Diagnostic Mammogram of the right breast in 6 months. . Results were given to the patient verbally at the time of exam. Patient should continue monthly self-breast exams. A clinical breast exam by your physician is recommended on an annual basis. This exam should not preclude additional follow-up of suspicious palpable abnormalities. Note on Perri scores and lifetime risk: 1. A Perri score greater than 3% is considered moderate risk. If this is the case, consider specialist referral to assess eligibility for a risk reducing agent. 2. If overall lifetime risk for the development of breast cancer is 20% or higher, the patient may qualify for future screening with alternating mammogram and breast MRI. [facility], , 07/30/2024 1:26 PM. Electronically signed and approved by: Rios Melendrez M.D. Radiolog[facility]
== END | disposition home or self-care (01) ==
LOC: RADMAMWWP 12:25
PROVIDERS: ATTEND Internal Medicine Geriatric Medicine
DX: R92.8 Other abnormal and inconclusive findings on diagnostic imaging of breast (principal); R92.331 Mammographic heterogeneous density, right breast; Z78.0 Asymptomatic menopausal state; Z92.0 Personal history of contraception
CPT/HCPCS: 77061; 77065

== ENCOUNTER → 2024-09-16 | Outpatient (CLI) | payer MEDICARE ==
[2024-09-16 10:19] LABS: Basophils # (A) 0.03 X 10*3/uL (0.00-0.10); Basophils % (A) 0.3 %; Eosinophils # (A) 0.07 X 10*3/uL (0.04-0.35); Eosinophils % (A) 0.7 %; HCT 40.3 % (37.2-46.3); HGB 13.3 g/dL (12.0-15.0); Lymphocytes # (A) 1.51 X 10*3/uL (0.90-5.00); Lymphocytes % (A) 15.2 %; MCH 31.2 pg (27.0-32.0); MCV 94.6 FL (80.0-97.0); Mean Platelet Volume 12.8 FL (9.5-12.2); Monocytes # (A) 1.48 X 10*3/uL (0.20-1.00); Monocytes % (A) 14.9 %; NRBC Per 100 WBC 0 X 10*3/uL (0.00-0.01); Neutrophils % (A) 68.5 %; Platelet Count 148 X 10*3/uL (140-440); RBC 4.26 X 10*6/uL (4.10-5.20); RDW 12.7 % (11.5-14.5); WBC 9.93 X 10*3/uL (4.50-10.00)
[2024-09-16 10:39] LABS: ALT 17 U/L (8-44); AST 18 U/L (13-35); Albumin 4.6 g/dL (3.8-4.9); Albumin/Globulin Ratio 2.19 Ratio (1.60-3.17); Alkaline Phosphatase 80 U/L (41-126); BUN/Creat Ratio 15.64 Ratio (12.00-20.00); Blood Urea Nitrogen 21.9 mg/dL (9.0-27.0); Calcium 9.5 mg/dL (8.7-10.3); Carbon Dioxide 27.1 mmol/L (21.6-31.8); Chloride 100 mmol/L (96-109); Chol/HDL Ratio 2.72 Ratio; Globulin 2.1 g/dL (1.6-3.3); Glucose 107 mg/dL (70-110); Magnesium 2.1 mg/dL (1.5-2.4); Potassium 3.9 mmol/L (3.5-5.5); Sodium 140 mmol/L (135-145); T4, Free (Free Thyroxine) 1.26 ng/dL (0.80-1.80); Total Bilirubin 1.4 mg/dL (0.3-1.2); Total Protein 6.7 g/dL (6.2-8.2)
== END | disposition home or self-care (01) ==
LOC: LABWHC1 07:27
PROVIDERS: ATTEND Internal Medicine Geriatric Medicine
DX: E78.2 Mixed hyperlipidemia (principal); E21.5 Disorder of parathyroid gland, unspecified; N18.31 Chronic kidney disease, stage 3a; R73.9 Hyperglycemia, unspecified
CPT/HCPCS: 36415; 80053; 80061; 83036; 83735; 84439; 84443; 85025